=== PATIENT | male | born 1960 | race Caucasian/White ===

== ENCOUNTER 2016-07-24 07:52 | Inpatient (IN) | payer MEDICARE ==
[2016-07-24] MEDS ORDERED: NORMAL SALINE 1000 ML 1,000 ML IV ONE ×3 (08:56→12:35)
[2016-07-24] MEDS ORDERED: ONDANSETRON HCL INJ/PF 4 MG/2 ML SDV IV ONE (09:00)
[2016-07-24] MEDS ORDERED: MORPHINE SULFATE 10 MG/ML INJ IV ONE (09:00)
--- NOTE | 2016-07-24 09:00 | ER Document Report ---
ED GI/ - General Chief Complaint: Abdominal Pain Stated Complaint: ABDOMINAL PAIN Time seen by provider: 08:58 Mode of Arrival: Medic Information source: Patient Notes: 56 yo male c/o epigastric abd. pain this am at 4 am. Has been drinking ETOH- states he was drunk this am. Called EMS. Hx pancreatitis and he thinks he has it again. Previous surgery for esophogeal stricture-severe with pancreatitis in [place] last hear. Vomiting, no diarrhea. Constipated. No fever. TRAVEL OUTSIDE OF THE [place] IN LAST 30 DAYS: No - Related Data Allergies/Adverse Reactions: No Known Allergies Allergy (Verified 07/24/16 07:59) Home Medications: Current Home Medications Metoprolol Tartrate [Lopressor 25 mg Tablet] 25 mg PO Q12 07/24/16 [History] Sertraline HCl [Zoloft] 200 mg PO DAILY 07/24/16 [History] Past Medical History - General Information source: Patient - Social History Smoking Status: Current Every Day Smoker Frequency of alcohol use: Heavy Drug Abuse: None Lives with: Spouse/Significant other Family History: Reviewed & Not Pertinent Patient has suicidal ideation: No Patient has homicidal ideation: No - Past Medical History Cardiac Medical History: Reports: Hx Hypertension Renal/ Medical History: Denies: Hx Peritoneal Dialysis GI Medical History: Reports: Hx Gastroesophageal Reflux Disease, Hx Hiatal Hernia, Other - pancreatitis Psychiatric Medical History: Reports: Hx Depression Past Surgical History: Reports: Hx Abdominal Surgery, Other - Esophageal surgery - Immunizations Hx Diphtheria, Pertussis, Tetanus Vaccination: Yes Hx Pneumococcal Vaccination: 10/16/15 Review of Systems - Review of Systems Constitutional: No symptoms reported EENT: No symptoms reported Cardiovascular: No symptoms reported Respiratory: No symptoms reported Gastrointestinal: See HPI Genitourinary: No symptoms reported Male Genitourinary: No symptoms reported Musculoskeletal: No symptoms reported Skin: No symptoms reported Hematologic/Lymphatic: No symptoms reported Neurological/Psychological: No symptoms reported Physical Exam - Vital signs Vitals: Temp Pulse Resp BP Pulse Ox 97.3 F 105 H 20 127/91 H 100 07/24/16 07:59 07/24/16 07:59 07/24/16 07:59 07/24/16 07:59 07/24/16 07:59 Interpretation: Hypertensive, Tachycardic - General General appearance: Appears well, Alert - HEENT Head: Normocephalic, Atraumatic Eyes: Normal Conjunctiva: Normal Pupils: PERRL Pharynx: Normal Neck: Supple - Respiratory Respiratory status: No respiratory distress Chest status: Nontender Breath sounds: Normal Chest palpation: Normal - Cardiovascular Rhythm: Regular Heart sounds: Normal auscultation Murmur: No - Abdominal Inspection: Normal Distension: No distension Bowel sounds: Normal Tenderness: Tender - epigastrum, scar noted Organomegaly: No organomegaly - Back Back: Normal, Nontender. No: CVA tenderness - Extremities General upper extremity: Normal inspection, Nontender, Normal color, Normal ROM , Normal temperature General lower extremity: Normal inspection, Nontender, Normal color, Normal ROM , Normal temperature, Normal weight bearing. No: Uziel's sign - Neurological Neuro grossly intact: Yes Cognition: Normal Orientation: AAOx4 [place] Coma Scale Eye Opening: Spontaneous [place] Coma Scale Verbal: Oriented [place] Coma Scale Motor: Obeys Commands [place] Coma Scale Total: 15 Speech: Normal Motor strength normal: LUE, RUE, LLE, RLE Sensory: Normal - Psychological Associated symptoms: Normal affect, Normal mood - Skin Skin Temperature: Warm Skin Moisture: Dry Skin Color: Normal Skin irregularity: negative: Rash Course - Re-evaluation Re-evalutation: 07/24/16 11:[address] dominguez for admission. 07/24/16 11:30 dr fong will admit to telemetry unit. get ekg. 0 - Vital Signs Vital signs: Temp Pulse Resp BP Pulse Ox 98.1 F 105 H 15 167/94 H 97 07/24/16 19:51 07/24/16 19:51 07/24/16 19:51 07/24/16 19:51 07/24/16 19:51 - Laboratory Result Diagrams: 07/24/16 09:48 07/24/16 09:48 Laboratory results interpreted by me: 07/24/16 07/24/16 07/24/16 09:48 09:48 10:38 WBC 11.0 H MCH 26.8 L RDW 20.4 H Absolute Neutrophils 8.3 H Sodium 150.5 H Anion Gap 20 H Calcium 12.5 H* Alkaline Phosphatase 203 H Lipase 1634.9 H Urine Protein 30 H Urine Ketones TRACE H Ur Leukocyte Esterase TRACE H Serum Alcohol 312 H* Discharge - Discharge Clinical Impression: Hypernatremia, Hypercalcemia, Alcohol abuse Pancreatitis Qualifiers: Chronicity: acute Pancreatitis type: alcohol induced Acute pancreatitis complication: unspecified Qualified Code(s): K85.20 - Alcohol induced acute pancreatitis without necrosis or infection Condition: Stable Disposition: ADMITTED INPATIENT Admitting Provider: Hospitalist Unit Admitted: Telemetry
[2016-07-24 09:59] LABS: ABSOLUTE BASOPHILS # (AUTO) 0.1 10^3/uL (0.0-0.2); ABSOLUTE LYMPHOCYTES (AUTO) 1.9 10^3/uL (0.5-4.7); ABSOLUTE MONOCYTES (AUTO) 0.6 10^3/uL (0.1-1.4); ABSOLUTE NEUT (AUTO) 8.3 10^3/uL (1.7-8.2); BASOPHILS % (AUTO) 0.8 % (0-2); EOSINOPHILS % (AUTO) 0.4 % (0-6); HEMATOCRIT 41.6 % (37.9-51.0); HEMOGLOBIN 13.7 g/dL (13.5-17.0); HGB HCT DIFFERENCE -0.5; LYMPHOCYTES % (AUTO) 17.4 % (13-45); MEAN CORPUSCULAR HEMOGLOBIN 26.8 pg (27.0-33.4); MEAN CORPUSCULAR VOLUME 81 fl (80-97); MONOCYTES % (AUTO) 5.6 % (3-13); RED BLOOD COUNT 5.12 10^6/uL (4.35-5.55); RED CELL DISTRIBUTION WIDTH 20.4 % (11.5-14.0); SEGMENTED NEUTROPHILS % (AUTO) 75.8 % (42-78)
[2016-07-24 10:18] LABS: ALANINE AMINOTRANSFERASE 22 U/L (21-72); ALBUMIN 3.5 g/dL (3.5-5.0); ALKALINE PHOSPHATASE 203 U/L (38-126); ASPARTATE AMINO TRANSFERASE 55 U/L (17-59); BILIRUBIN,TOTAL 0.4 mg/dL (0.2-1.3); BLOOD UREA NITROGEN 10 mg/dL (7-20); CARBON DIOXIDE 30 mmol/L (22-30); CHLORIDE 101 mmol/L (98-107); CREATININE RESULT 0.92 mg/dL (0.52-1.25); GLUCOSE 90 mg/dL (75-110); LIPASE 1634.9 U/L (23-300); POTASSIUM 4.1 mmol/L (3.6-5.0); SODIUM 150.5 mmol/L (137-145); TOTAL PROTEIN 8.1 g/dL (6.3-8.2)
[2016-07-24 10:34] LABS: ALCOHOL 312 mg/dL (NONE DETECTED); ANION GAP 20 (5-19); CALCIUM 12.5 mg/dL (8.4-10.2)
[2016-07-24 11:10] LABS: APPEARANCE,URINE SLIGHTLY-CLOUDY; BILIRUBIN,URINE NEGATIVE (NEGATIVE); GLUCOSE, URINE NEGATIVE (NEGATIVE); KETONES,URINE TRACE mg/dL (NEGATIVE); LEUKOCYTE ESTERASE,URINE TRACE (NEGATIVE); NITRITE,URINE NEGATIVE (NEGATIVE); PROTEIN,URINE 30 mg/dL (NEGATIVE); URINE SPECIFIC GRAVITY 1.017; UROBILINOGEN,URINE NEGATIVE mg/dL (<2.0)
[2016-07-24 11:29] LABS: URINE BARBITURATES SCREEN NEGATIVE; URINE METHADONE SCREEN NEGATIVE; URINE OPIATES LOW UNCONFIRMED POSITIVE; URINE PHENCYCLIDINE SCREEN NEGATIVE
[2016-07-24] MEDS ORDERED: LORAZEPAM INJ 2 MG/1 ML VIAL IV PRN (12:18)
[2016-07-24] MEDS ORDERED: ONDANSETRON HCL INJ/PF 4 MG/2 ML SDV IV PRN ×2 (12:29)
--- NOTE | 2016-07-24 12:43 | EKG REPORT ---
SEVERITY:- BORDERLINE ECG - SINUS TACHYCARDIA RIGHT AXIS DEVIATION LOW VOLTAGE IN FRONTAL LEADS BORDERLINE ST DEPRESSION, ANTEROLATERAL LEADS : Confirmed by: Anant Ventura 24-Jul-2016 12:42:19
--- NOTE | 2016-07-24 13:00 | PDOC H&P ---
History of Present Illness Admission Date/PCP: 07/24/16 11:44 MARTHA GARRETT MD Patient complains of: abdominal pain History of Present Illness: HALLE ROSARIO is a 56 year old male c/o epigastric abd. pain this am at 4 am. Has been drinking ETOH- states he was drunk this am. Called EMS. Hx pancreatitis and he thinks he has it again. Previous surgery for esophogeal stricture-severe with pancreatitis in [place] last hear. Vomiting, no diarrhea. Constipated. No fever. In the ER patient patient was found to be in alcohol withdrawal , tremulous He was extremely dehydrated with a sodium of 150 , calcium of 12.5 ; lipase 1634 07/24/16 09:48 Sodium 150.5 H Potassium 4.1 Chloride 101 Carbon Dioxide 30 Calcium 12.5 H* Lipase 1634.9 H Patient was discharged on 06/24/2016 with a diagnosis of acute pancreatitis CT abdomen and pelvis done during the hospital stay was suggestive of pancreatic pseudocyst " cystic mass post mediastinum communicating with other mass epigastrium " Patient was admitted to [facility] [place] with alcohol withdrawal protocol Repeat CT abdomen and pelvis was scheduled Past Medical History Cardiac Medical History: Reports: Hypertension GI Medical History: Reports: Gastroesophageal Reflux Disease, Hiatal Hernia Psychiatric Medical History: Reports: Depression Past Surgical History Past Surgical History: Reports: Tonsillectomy, Other - Esophageal resection [facility] 2014 Social History Information Source: Patient Smoking Status: Current Every Day Smoker - 1-2 packs daily Frequency of Alcohol Use: Heavy - 1 pint vodka a day Hx Recreational Drug Use: No Drugs: None Hx Prescription Drug Abuse: No Family History Parental Family History Reviewed: Yes - chronic alcoholism / smoking Children Family History Reviewed: Yes - no children Sibling(s) Family History Reviewed.: Yes - 1 brother chronic alcoholism Medication/Allergy Home Medications: Metoprolol Tartrate [Lopressor 25 mg Tablet] 25 mg PO Q12 07/24/16 Sertraline HCl [Zoloft] 200 mg PO DAILY 07/24/16 Allergies/Adverse Reactions: No Known Allergies Allergy (Verified 07/24/16 07:59) Review of Systems Constitutional: ABSENT: chills, fever(s), headache(s), weight gain, weight loss Eyes: ABSENT: visual disturbances Ears: ABSENT: hearing changes Cardiovascular: ABSENT: chest pain, dyspnea on exertion, edema, orthropnea, palpitations Respiratory: ABSENT: cough, hemoptysis Gastrointestinal: PRESENT: as per HPI, abdominal pain, constipation, nausea. ABSENT: hematemesis, hematochezia, melena, vomiting Genitourinary: ABSENT: dysuria, hematuria Musculoskeletal: ABSENT: joint swelling Integumentary: ABSENT: rash, wounds Neurological: PRESENT: tremor(s). ABSENT: abnormal gait, abnormal speech, confusion, dizziness, focal weakness, syncope Psychiatric: ABSENT: anxiety, depression, homidical ideation, suicidal ideation Endocrine: ABSENT: cold intolerance, heat intolerance, polydipsia, polyuria Hematologic/Lymphatic: ABSENT: easy bleeding, easy bruising Physical Exam Vital Signs: Temp Pulse Resp BP Pulse Ox 98.3 F 123 H 20 153/116 H 100 07/24/16 12:14 07/24/16 12:14 07/24/16 07:59 07/24/16 12:14 07/24/16 07:59 General appearance: PRESENT: cooperative, mild distress, thin Head exam: PRESENT: atraumatic, normocephalic Eye exam: PRESENT: conjunctiva pink, EOMI, PERRLA. ABSENT: scleral icterus Neck exam: ABSENT: carotid bruit, JVD, lymphadenopathy, thyromegaly Respiratory exam: PRESENT: clear to auscultation nishant. ABSENT: rales, rhonchi, wheezes Cardiovascular exam: PRESENT: RRR. ABSENT: diastolic murmur, rubs, systolic murmur Pulses: PRESENT: normal dorsalis pedis pul GI/Abdominal exam: PRESENT: other - vertical surgical scar abdomen extreme tenderness epigastrium with guarding no rebound Extremities exam: PRESENT: full ROM. ABSENT: calf tenderness, clubbing, pedal edema Musculoskeletal exam: PRESENT: ambulatory, full ROM Neurological exam: PRESENT: alert, awake, oriented to person, oriented to place , oriented to time, oriented to situation, CN II-XII grossly intact, other - tremors. ABSENT: motor sensory deficit Skin exam: PRESENT: dry, intact, warm. ABSENT: cyanosis, rash Assessment & Plan - Diagnosis (1) Alcohol withdrawal Qualifiers: Complication of substance-induced condition: with unspecified complication Qualified Code(s): F10.239 - Alcohol dependence with withdrawal, unspecified Is this a current diagnosis for this admission?: YesPlan: initiate protocole ativan , banana bag cardiac monitoring (2) Pancreatic pseudocyst Is this a current diagnosis for this admission?: YesPlan: as per previous CT abdomen and pelvis repeat CT in am and reevaluate records to be obtained from [place] (3) Alcohol abuse Is this a current diagnosis for this admission?: Yes (5) Hypercalcemia Is this a current diagnosis for this admission?: YesPlan: likely secondary to dehydration hydrate repeat in am investigate further if persistent (6) Pancreatitis Qualifiers: Chronicity: acute Pancreatitis type: alcohol induced Acute pancreatitis complication: unspecified Qualified Code(s): K85.20 - Alcohol induced acute pancreatitis without necrosis or infection Is this a current diagnosis for this admission?: YesPlan: NPO IV fluids CT abdomen and pelvis pending (7) Chronic alcoholism Is this a current diagnosis for this admission?: Yes (8) DNR (do not resuscitate) Is this a current diagnosis for this admission?: Yes - Time Time Spent: 50 to 70 Minutes
[2016-07-24] MEDS ORDERED: PANTOPRAZOLE SODIUM 40 MG VIAL IV ONE ×2 (13:15→16:45)
[2016-07-24] MEDS: HYDROMORPHONE HCL INJ/PF 2 MG/ML AMPULE IV PRN (17:07)
[2016-07-24] MEDS: LORAZEPAM 1 MG TABLET PO SCH ×3 (17:09→21:27)
[2016-07-24] MEDS: NORMAL SALINE 1000 ML 1,000 ML with POTASSIUM CHLORIDE 20 MEQ, MAGNESIUM SULFATE 8 MEQ,... IV PRN ×5 (17:11)
[2016-07-24] MEDS ORDERED: INFLUENZA ADLT QUAD (36MOS+) 2016-17 VAC 0.5 ML SYR IM PRN (19:06)
[2016-07-24] MEDS: PANTOPRAZOLE SODIUM 40 MG VIAL IV SCH (21:27)
[2016-07-25] MEDS: LORAZEPAM 1 MG TABLET PO SCH ×6 (01:07→21:13)
[2016-07-25] MEDS: NORMAL SALINE 1000 ML 1,000 ML with POTASSIUM CHLORIDE 20 MEQ, MAGNESIUM SULFATE 8 MEQ,... IV PRN ×10 (03:45→17:21)
[2016-07-25 07:40] LABS: ABSOLUTE LYMPHOCYTES (AUTO) 0.7 10^3/uL (0.5-4.7); ABSOLUTE MONOCYTES (AUTO) 0.5 10^3/uL (0.1-1.4); ABSOLUTE NEUT (AUTO) 7.3 10^3/uL (1.7-8.2); BASOPHILS % (AUTO) 0.2 % (0-2); EOSINOPHILS % (AUTO) 0.2 % (0-6); HEMATOCRIT 35.9 % (37.9-51.0); HGB HCT DIFFERENCE 0.1; LYMPHOCYTES % (AUTO) 7.7 % (13-45); MEAN CORPUSCULAR HEMOGLOBIN 27.5 pg (27.0-33.4); MEAN CORPUSCULAR HGB CONC 33.4 g/dL (32.0-36.0); MEAN CORPUSCULAR VOLUME 82 fl (80-97); MONOCYTES % (AUTO) 5.9 % (3-13); RED BLOOD COUNT 4.37 10^6/uL (4.35-5.55); RED CELL DISTRIBUTION WIDTH 20.3 % (11.5-14.0); WHITE BLOOD COUNT 8.5 10^3/uL (4.0-10.5)
[2016-07-25 08:00] LABS: ANION GAP 11 (5-19)
[2016-07-25 08:14] LABS: ALANINE AMINOTRANSFERASE 32 U/L (21-72); ALBUMIN 3.4 g/dL (3.5-5.0); ALKALINE PHOSPHATASE 198 U/L (38-126); ASPARTATE AMINO TRANSFERASE 50 U/L (17-59); BILIRUBIN,TOTAL 0.7 mg/dL (0.2-1.3); BLOOD UREA NITROGEN 8 mg/dL (7-20); CARBON DIOXIDE 37 mmol/L (22-30); CHLORIDE 92 mmol/L (98-107); CHOLESTEROL 158.67 mg/dL (0-200); CREATININE RESULT 0.61 mg/dL (0.52-1.25); DIRECT LDL 45 mg/dL (<100); Direct HDL 89 mg/dL (>40); GLUCOSE 76 mg/dL (75-110); SODIUM 140.1 mmol/L (137-145); TOTAL PROTEIN 7.7 g/dL (6.3-8.2); TRIGLYCERIDES 45 mg/dL (<150)
[2016-07-25 08:15] LABS: LIPASE 2092.7 U/L (23-300)
[2016-07-25] MEDS: PANTOPRAZOLE SODIUM 40 MG VIAL IV SCH ×2 (09:40→21:13)
[2016-07-25] MEDS: MAGNESIUM SULFATE/D5W 1 GM/100 ML RTUPB IV SCH ×2 (11:57→13:52)
[2016-07-25] MEDS: POTASSI CL 20 MEQ/50 ML RIDER 20 MEQ/50 ML RTUPB IV SCH ×2 (11:59→15:42)
--- NOTE | 2016-07-25 13:59 | PDOC PROGRESS REPORT ---
Subjective Progress Note for:: 07/25/16 Subjective:: Patient is still complaining of abdominal pain no nausea or vomiting somewhat tremulous Mag and K low and being replaced Physical Exam Vital Signs: Temp Pulse Resp BP Pulse Ox 97.4 F 74 18 153/96 H 98 07/25/16 12:03 07/25/16 12:03 07/25/16 12:03 07/25/16 12:03 07/25/16 12:03 Intake & Output 07/24/16 07/25/16 07/26/16 00:59 00:59 00:59 Intake Total 671 3219 Output Total 250 3350 Balance 421 -131 Weight 67.2 kg 67.2 kg General appearance: PRESENT: mild distress Head exam: PRESENT: atraumatic, normocephalic Eye exam: PRESENT: conjunctiva pink, EOMI, PERRLA. ABSENT: scleral icterus Neck exam: ABSENT: carotid bruit, JVD, lymphadenopathy, thyromegaly Respiratory exam: PRESENT: clear to auscultation nishant. ABSENT: rales, rhonchi, wheezes Cardiovascular exam: PRESENT: RRR. ABSENT: diastolic murmur, rubs, systolic murmur Pulses: PRESENT: normal dorsalis pedis pul GI/Abdominal exam: PRESENT: normal bowel sounds, soft, tenderness - epigastrium with mild guarding. ABSENT: distended, guarding, mass, organolmegaly, rebound Rectal exam: PRESENT: deferred Neurological exam: PRESENT: alert, awake, oriented to person, oriented to place , oriented to time, oriented to situation, CN II-XII grossly intact, other - tremors upper extremities. ABSENT: motor sensory deficit Results Laboratory Results: 07/25/16 07:15 07/25/16 07:15 07/25/16 07/25/16 07/25/16 07:15 07:15 07:15 WBC 8.5 RBC 4.37 Hgb 12.0 L Hct 35.9 L MCV 82 MCH 27.5 MCHC 33.4 RDW 20.3 H Plt Count 188 Seg Neutrophils % 86.0 H Lymphocytes % 7.7 L Monocytes % 5.9 Eosinophils % 0.2 Basophils % 0.2 Absolute Neutrophils 7.3 Absolute Lymphocytes 0.7 Absolute Monocytes 0.5 Absolute Eosinophils 0.0 Absolute Basophils 0.0 Sodium 140.1 Potassium 3.0 L* D Chloride 92 L Carbon Dioxide 37 H Anion Gap 11 BUN 8 Creatinine 0.61 Est GFR ( Amer) > 60 Est GFR (Non-Af Amer) > 60 Glucose 76 Calcium 10.0 Magnesium 1.0 L* Total Bilirubin 0.7 AST 50 ALT 32 Alkaline Phosphatase 198 H Ammonia 25.2 Total Protein 7.7 Albumin 3.4 L Triglycerides 45 Cholesterol 158.67 LDL Cholesterol Direct 45 VLDL Cholesterol 9.0 L HDL Cholesterol 89 Lipase 2092.7 H TSH 07/25/16 07:15 WBC RBC Hgb Hct MCV MCH MCHC RDW Plt Count Seg Neutrophils % Lymphocytes % Monocytes % Eosinophils % Basophils % Absolute Neutrophils Absolute Lymphocytes Absolute Monocytes Absolute Eosinophils Absolute Basophils Sodium Potassium Chloride Carbon Dioxide Anion Gap BUN Creatinine Est GFR ( Amer) Est GFR (Non-Af Amer) Glucose Calcium Magnesium Total Bilirubin AST ALT Alkaline Phosphatase Ammonia Total Protein Albumin Triglycerides Cholesterol LDL Cholesterol Direct VLDL Cholesterol HDL Cholesterol Lipase TSH 0.94 Impressions: Chest X-Ray 07/24/16 12:17 IMPRESSION: COPD. NO ACUTE RADIOGRAPHIC FINDING IN THE CHEST. Abdomen/Pelvis CT 07/25/16 06:00 IMPRESSION: No CT evidence of acute pancreatitis on the current scan Post gastric pull-through, anterior mediastinum Stable posterior mediastinal fluid collection in the expected location of the esophagus, 14 x 6 x 5 cm in size. Assessment & Plan - Diagnosis (1) Alcohol withdrawal Qualifiers: Complication of substance-induced condition: with unspecified complication Qualified Code(s): F10.239 - Alcohol dependence with withdrawal, unspecified Is this a current diagnosis for this admission?: YesPlan: continue Ativan protocole (2) Pancreatic pseudocyst Is this a current diagnosis for this admission?: NoPlan: unlikely cystic mass in chest likely distal esophageal remnant (3) Alcohol abuse Is this a current diagnosis for this admission?: Yes (4) Hypernatremia Is this a current diagnosis for this admission?: YesPlan: resolved (5) Hypercalcemia Is this a current diagnosis for this admission?: YesPlan: improved with hydration (6) Pancreatitis Qualifiers: Chronicity: acute Pancreatitis type: alcohol induced Acute pancreatitis complication: unspecified Qualified Code(s): K85.20 - Alcohol induced acute pancreatitis without necrosis or infection Is this a current diagnosis for this admission?: YesPlan: lipase still high continue IV fluids, ice chips (7) Chronic alcoholism Is this a current diagnosis for this admission?: Yes (8) DNR (do not resuscitate) Is this a current diagnosis for this admission?: Yes (9) Renal mass, right Is this a current diagnosis for this admission?: YesPlan: to be discussed with patient refer patient to urology at discharge - Time Time Spent with patient: 25-34 minutes
[2016-07-25 19:09] LABS: ANION GAP 11 (5-19); BLOOD UREA NITROGEN 6 mg/dL (7-20); CALCIUM 9.2 mg/dL (8.4-10.2); CARBON DIOXIDE 36 mmol/L (22-30); CHLORIDE 93 mmol/L (98-107); CREATININE RESULT 0.55 mg/dL (0.52-1.25); GLUCOSE 62 mg/dL (75-110); MAGNESIUM 1.8 mg/dL (1.6-2.3); POTASSIUM 3.4 mmol/L (3.6-5.0); SODIUM 139.9 mmol/L (137-145)
[2016-07-25] MEDS: METOPROLOL TARTRATE 25 MG TABLET PO SCH (21:12)
[2016-07-26] MEDS: HYDROMORPHONE HCL INJ/PF 2 MG/ML AMPULE IV PRN (01:01)
[2016-07-26] MEDS: LORAZEPAM 1 MG TABLET PO SCH ×6 (01:02→22:09)
[2016-07-26 07:19] LABS: ANION GAP 10 (5-19); BLOOD UREA NITROGEN 8 mg/dL (7-20); CALCIUM 8.5 mg/dL (8.4-10.2); CARBON DIOXIDE 31 mmol/L (22-30); CHLORIDE 99 mmol/L (98-107); CREATININE RESULT 0.64 mg/dL (0.52-1.25); GLUCOSE 52 mg/dL (75-110); MAGNESIUM 1.8 mg/dL (1.6-2.3); SODIUM 140.2 mmol/L (137-145)
[2016-07-26 07:22] LABS: POTASSIUM 3.3 mmol/L (3.6-5.0)
[2016-07-26] MEDS: METOPROLOL TARTRATE 25 MG TABLET PO SCH (09:26)
[2016-07-26] MEDS: PANTOPRAZOLE SODIUM 40 MG VIAL IV SCH (09:27)
[2016-07-26] MEDS ORDERED: NORMAL SALINE 1000 ML 1,000 ML IV PRN (10:03)
[2016-07-26] MEDS ORDERED: POTASSIUM CHLORIDE 10 MEQ TABLET.SA PO ONE (10:30)
[2016-07-26] MEDS ORDERED: THIAMINE HCL 100 MG TABLET PO ONE (11:00)
--- NOTE | 2016-07-26 15:52 | PDOC PROGRESS REPORT ---
Subjective Progress Note for:: 07/26/16 Subjective:: doing well abdominal pain decreased , minimal tremors BP has been elevated Physical Exam Vital Signs: Temp Pulse Resp BP Pulse Ox 98.0 F 101 H 16 172/94 H 99 07/26/16 12:13 07/26/16 14:00 07/26/16 12:13 07/26/16 12:13 07/26/16 12:13 Intake & Output 07/25/16 07/26/16 07/27/16 00:59 00:59 00:59 Intake Total 671 4396 1098 Output Total 250 3675 500 Balance 421 721 598 Weight 67.2 kg 67.2 kg 63.9 kg General appearance: PRESENT: no acute distress, thin Head exam: PRESENT: atraumatic, normocephalic Eye exam: PRESENT: conjunctiva pink, EOMI, PERRLA. ABSENT: scleral icterus Ear exam: PRESENT: normal external ear exam Mouth exam: PRESENT: moist, tongue midline Neck exam: ABSENT: carotid bruit, JVD, lymphadenopathy, thyromegaly Respiratory exam: PRESENT: clear to auscultation nishant. ABSENT: rales, rhonchi, wheezes Cardiovascular exam: PRESENT: RRR. ABSENT: diastolic murmur, rubs, systolic murmur Pulses: PRESENT: normal dorsalis pedis pul Vascular exam: PRESENT: normal capillary refill GI/Abdominal exam: PRESENT: normal bowel sounds, soft, tenderness - epigastrium. ABSENT: distended, guarding, mass, organolmegaly, rebound Rectal exam: PRESENT: deferred Extremities exam: PRESENT: full ROM. ABSENT: calf tenderness, clubbing, pedal edema Neurological exam: PRESENT: alert, awake, oriented to person, oriented to place , oriented to time, oriented to situation, CN II-XII grossly intact. ABSENT: motor sensory deficit Psychiatric exam: PRESENT: appropriate affect, normal mood. ABSENT: homicidal ideation, suicidal ideation Skin exam: PRESENT: dry, intact, warm. ABSENT: cyanosis, rash Results Laboratory Results: 07/25/16 07:15 07/26/16 06:16 07/25/16 07/26/16 18:35 06:16 Sodium 139.9 140.2 Potassium 3.4 L 3.3 L Chloride 93 L 99 Carbon Dioxide 36 H 31 H Anion Gap 11 10 BUN 6 L 8 Creatinine 0.55 0.64 Est GFR ( Amer) > 60 > 60 Est GFR (Non-Af Amer) > 60 > 60 Glucose 62 L 52 L Calcium 9.2 8.5 Magnesium 1.8 1.8 Impressions: Chest X-Ray 07/24/16 12:17 IMPRESSION: COPD. NO ACUTE RADIOGRAPHIC FINDING IN THE CHEST. Abdomen/Pelvis CT 07/25/16 06:00 IMPRESSION: No CT evidence of acute pancreatitis on the current scan Post gastric pull-through, anterior mediastinum Stable posterior mediastinal fluid collection in the expected location of the esophagus, 14 x 6 x 5 cm in size. Assessment & Plan - Diagnosis (1) Alcohol withdrawal Qualifiers: Complication of substance-induced condition: with unspecified complication Qualified Code(s): F10.239 - Alcohol dependence with withdrawal, unspecified Is this a current diagnosis for this admission?: Yes (2) Pancreatic pseudocyst Is this a current diagnosis for this admission?: No (3) Alcohol abuse Is this a current diagnosis for this admission?: Yes (4) Hypernatremia Is this a current diagnosis for this admission?: Yes (5) Hypercalcemia Is this a current diagnosis for this admission?: Yes (6) Pancreatitis Qualifiers: Chronicity: acute Pancreatitis type: alcohol induced Acute pancreatitis complication: unspecified Qualified Code(s): K85.20 - Alcohol induced acute pancreatitis without necrosis or infection Is this a current diagnosis for this admission?: Yes (7) Chronic alcoholism Is this a current diagnosis for this admission?: Yes (8) DNR (do not resuscitate) Is this a current diagnosis for this admission?: Yes (9) Renal mass, right Is this a current diagnosis for this admission?: Yes - Time Time Spent with patient: electrolyte imbalance improved pancreatitis improving will increase diet to clear liquids ; decrease ativan , transfer to medical unit Patient may be discharged in am if stable Time Spent with patient: 25-34 minutes
[2016-07-26] MEDS ORDERED: METOPROLOL TARTRATE 25 MG TABLET PO SCH (16:00)
[2016-07-26] MEDS: FAMOTIDINE 20 MG TABLET PO SCH (22:08)
[2016-07-26] MEDS: METOPROLOL TARTRATE 50 MG TABLET PO SCH (22:09)
[2016-07-27] MEDS: LORAZEPAM 1 MG TABLET PO SCH ×6 (01:16→21:44)
[2016-07-27] MEDS ORDERED: LORAZEPAM INJ 2 MG/1 ML VIAL ONE ×2 (02:37→04:07)
[2016-07-27] MEDS ORDERED: HALOPERIDOL LACTATE INJ 5 MG/1 ML VIAL ONE (02:37)
[2016-07-27] MEDS ORDERED: LORAZEPAM INJ 2 MG/1 ML VIAL IV ONE ×2 (02:45→04:15)
[2016-07-27] MEDS ORDERED: HALOPERIDOL LACTATE INJ 5 MG/1 ML VIAL IV ONE (02:45)
[2016-07-27] MEDS ORDERED: OLANZAPINE INJ/PF 10 MG SDV IM ONE ×3 (04:45→05:00)
[2016-07-27 06:11] LABS: ABSOLUTE BASOPHILS # (AUTO) 0.1 10^3/uL (0.0-0.2); ABSOLUTE EOSINOPHILS # (AUTO) 0.2 10^3/uL (0.0-0.6); ABSOLUTE LYMPHOCYTES (AUTO) 1.1 10^3/uL (0.5-4.7); ABSOLUTE MONOCYTES (AUTO) 0.5 10^3/uL (0.1-1.4); ABSOLUTE NEUT (AUTO) 6.1 10^3/uL (1.7-8.2); BASOPHILS % (AUTO) 1.1 % (0-2); EOSINOPHILS % (AUTO) 2.1 % (0-6); HEMATOCRIT 33.7 % (37.9-51.0); HEMOGLOBIN 11.1 g/dL (13.5-17.0); HGB HCT DIFFERENCE -0.4; MEAN CORPUSCULAR HGB CONC 32.9 g/dL (32.0-36.0); MEAN CORPUSCULAR VOLUME 82 fl (80-97); MONOCYTES % (AUTO) 6.1 % (3-13); RED BLOOD COUNT 4.11 10^6/uL (4.35-5.55); SEGMENTED NEUTROPHILS % (AUTO) 76.7 % (42-78)
[2016-07-27 06:30] LABS: ALANINE AMINOTRANSFERASE 26 U/L (21-72); ALBUMIN 3.1 g/dL (3.5-5.0); ALKALINE PHOSPHATASE 158 U/L (38-126); ANION GAP 11 (5-19); ASPARTATE AMINO TRANSFERASE 37 U/L (17-59); BILIRUBIN,TOTAL 0.6 mg/dL (0.2-1.3); BLOOD UREA NITROGEN 7 mg/dL (7-20); CALCIUM 8.2 mg/dL (8.4-10.2); CARBON DIOXIDE 27 mmol/L (22-30); CHLORIDE 102 mmol/L (98-107); CREATININE RESULT 0.59 mg/dL (0.52-1.25); GLUCOSE 81 mg/dL (75-110); LIPASE 613.1 U/L (23-300); POTASSIUM 3.2 mmol/L (3.6-5.0); SODIUM 139.6 mmol/L (137-145); TOTAL PROTEIN 6.5 g/dL (6.3-8.2)
[2016-07-27] MEDS: FAMOTIDINE 20 MG TABLET PO SCH ×2 (09:04→21:45)
[2016-07-27] MEDS: METOPROLOL TARTRATE 50 MG TABLET PO SCH ×2 (09:05→21:44)
[2016-07-27] MEDS: THIAMINE HCL 100 MG TABLET PO SCH (09:05)
--- NOTE | 2016-07-27 17:51 | PDOC PROGRESS REPORT ---
Subjective Progress Note for:: 07/27/16 Subjective:: Patient's pancreatitis has improved as the lipase is on in a downward trend But patient's mentation is a lot worse and is clearly in alcohol withdrawal We increased the Ativan Patient is on soft restraints Physical Exam Vital Signs: Temp Pulse Resp BP Pulse Ox 97.5 F 77 16 149/99 H 100 07/27/16 16:07 07/27/16 16:07 07/27/16 16:07 07/27/16 16:07 07/27/16 16:07 Intake & Output 07/26/16 07/27/16 07/28/16 00:59 00:59 00:59 Intake Total 4396 1843 3195 Output Total 3675 702 100 Balance 721 1141 3095 Weight 67.2 kg 63.9 kg 63.7 kg General appearance: PRESENT: mild distress, thin Head exam: PRESENT: atraumatic, normocephalic Eye exam: PRESENT: conjunctiva pink, EOMI, PERRLA. ABSENT: scleral icterus Neck exam: ABSENT: carotid bruit, JVD, lymphadenopathy, thyromegaly Respiratory exam: PRESENT: clear to auscultation nishant. ABSENT: rales, rhonchi, wheezes Cardiovascular exam: PRESENT: RRR. ABSENT: diastolic murmur, rubs, systolic murmur Pulses: PRESENT: normal dorsalis pedis pul GI/Abdominal exam: PRESENT: tenderness - In the epigastrium remains Extremities exam: PRESENT: full ROM. ABSENT: calf tenderness, clubbing, pedal edema Neurological exam: PRESENT: alert, awake, CN II-XII grossly intact, other - Confused. ABSENT: motor sensory deficit Skin exam: PRESENT: dry, intact, warm. ABSENT: cyanosis, rash Results Laboratory Results: 07/27/16 05:51 07/27/16 05:51 07/27/16 07/27/16 05:51 05:51 WBC 8.0 RBC 4.11 L Hgb 11.1 L Hct 33.7 L MCV 82 MCH 27.0 MCHC 32.9 RDW 20.0 H Plt Count 157 Seg Neutrophils % 76.7 Lymphocytes % 14.0 Monocytes % 6.1 Eosinophils % 2.1 Basophils % 1.1 Absolute Neutrophils 6.1 Absolute Lymphocytes 1.1 Absolute Monocytes 0.5 Absolute Eosinophils 0.2 Absolute Basophils 0.1 Sodium 139.6 Potassium 3.2 L Chloride 102 Carbon Dioxide 27 Anion Gap 11 BUN 7 Creatinine 0.59 Est GFR ( Amer) > 60 Est GFR (Non-Af Amer) > 60 Glucose 81 Calcium 8.2 L Total Bilirubin 0.6 AST 37 ALT 26 Alkaline Phosphatase 158 H Total Protein 6.5 Albumin 3.1 L Lipase 613.1 H Impressions: Chest X-Ray 07/24/16 12:17 IMPRESSION: COPD. NO ACUTE RADIOGRAPHIC FINDING IN THE CHEST. Abdomen/Pelvis CT 07/25/16 06:00 IMPRESSION: No CT evidence of acute pancreatitis on the current scan Post gastric pull-through, anterior mediastinum Stable posterior mediastinal fluid collection in the expected location of the esophagus, 14 x 6 x 5 cm in size. Assessment & Plan - Diagnosis (1) Pancreatic pseudocyst Is this a current diagnosis for this admission?: NoPlan: Was ruled out by the recent CAT scan (2) Alcohol abuse Is this a current diagnosis for this admission?: Yes (3) Hypernatremia Is this a current diagnosis for this admission?: YesPlan: Resolved (4) Hypercalcemia Is this a current diagnosis for this admission?: YesPlan: Resolved (5) Pancreatitis Qualifiers: Chronicity: acute Pancreatitis type: alcohol induced Acute pancreatitis complication: unspecified Qualified Code(s): K85.20 - Alcohol induced acute pancreatitis without necrosis or infection Is this a current diagnosis for this admission?: Yes (6) Chronic alcoholism Is this a current diagnosis for this admission?: Yes (7) DNR (do not resuscitate) Is this a current diagnosis for this admission?: Yes (8) Renal mass, right Is this a current diagnosis for this admission?: YesPlan: Should be investigated further when the patient is stable (9) Alcohol withdrawal Qualifiers: Complication of substance-induced condition: with unspecified complication Qualified Code(s): F10.239 - Alcohol dependence with withdrawal, unspecified Is this a current diagnosis for this admission?: YesPlan: Continue present regimen - Time Time Spent with patient: 25-34 minutes
[2016-07-28] MEDS: LORAZEPAM INJ 2 MG/1 ML VIAL IV PRN ×3 (00:36→16:23)
[2016-07-28] MEDS: LORAZEPAM 1 MG TABLET PO SCH ×6 (01:43→23:01)
[2016-07-28] MEDS: THIAMINE HCL 100 MG TABLET PO SCH (09:35)
[2016-07-28] MEDS: FAMOTIDINE 20 MG TABLET PO SCH ×2 (09:35→23:00)
[2016-07-28] MEDS: METOPROLOL TARTRATE 50 MG TABLET PO SCH ×2 (09:36→23:01)
[2016-07-28] MEDS ORDERED: HYDRALAZINE HCL INJ/PF 20 MG/1 ML SDV IV PRN (11:51)
[2016-07-28] MEDS ORDERED: CLONIDINE HCL 0.1 MG TABLET ONE (12:02)
--- NOTE | 2016-07-28 16:53 | PDOC PROGRESS REPORT ---
Subjective Progress Note for:: 07/28/16 Subjective:: Reason for visit: Follow-up acute pancreatitis, all withdrawal syndrome and early DTs Hospital course: Per H&P " HALLE ROSARIO is a 56 year old male c/o epigastric abd. pain this am at 4 am. Has been drinking ETOH- states he was drunk this am. Called EMS. Hx pancreatitis and he thinks he has it again. Previous surgery for esophogeal stricture-severe with pancreatitis in [place] last hear. Vomiting, no diarrhea. Constipated. No fever. In the ER patient patient was found to be in alcohol withdrawal , tremulous He was extremely dehydrated with a sodium of 150 , calcium of 12.5 ; lipase 1634 " Patient was admitted to the hospital and treated empirically for an acute pancreatitis and initially showed some improvement, he was noted to be intoxicated and presentation with an alcohol level greater than 300, since admission he has taken a turn for the worse now showing evidence of agitation and delirium consistent with acute delirium tremens. Subjective: Patient is not oriented to person or place and therefore cannot provide a reliable review of systems her medical history. ROS: Unobtainable. Physical Exam Vital Signs: Temp Pulse Resp BP Pulse Ox 97.0 F 87 16 176/111 H 100 07/28/16 07:41 07/28/16 14:00 07/28/16 11:43 07/28/16 11:43 07/28/16 07:41 Intake & Output 07/27/16 07/28/16 07/29/16 06:59 06:59 06:59 Intake Total 2440 2339 500 Output Total 502 Balance 1938 2339 500 Weight 63.7 kg 63.7 kg EXAM GENERAL: NAD, cooperative staff at present; well developed, well nourished; no obese; alert and oriented to person only HEENT: normocephalic, atraumatic; no conjunctival injection, no scleral icterus ; oral mucosa dry; RESPIRATORY: no accessory muscle use, no increased WOB, good air entry bilaterally; no wheezes, rales, rhonchi; no inspiratory crackles CARDIO: no JVD; RRR; no systolic murmur; no tachycardia GI: soft; nondistended; normal bowel sounds; no rebound, rigidity, guarding; mild epigastric tenderness to deep palpation. VASCULAR: no abdominal bruit; no pallor; 2+ radial, DP pulse; normal capillary refill EXTREMITIES: no calf tender; no palpable cords in calf; no clubbing, cyanosis , pedal edema PSYCH: normal affect, normal mood, confused SKIN: warm; moist; no petechiae; no telengectasias; no jaundice; no rash Results Laboratory Results: 07/27/16 05:51 07/27/16 05:51 Labs reviewed, potassium was low, normal renal function, lipase trending down. Impressions: Chest X-Ray 07/24/16 12:17 IMPRESSION: COPD. NO ACUTE RADIOGRAPHIC FINDING IN THE CHEST. Abdomen/Pelvis CT 07/25/16 06:00 IMPRESSION: No CT evidence of acute pancreatitis on the current scan Post gastric pull-through, anterior mediastinum Stable posterior mediastinal fluid collection in the expected location of the esophagus, 14 x 6 x 5 cm in size. Status: Imported from PACS - Report reviewed Assessment & Plan - Diagnosis (1) Alcohol abuse Is this a current diagnosis for this admission?: YesPlan: Alcohol cessation counseling when able (2) Alcohol withdrawal Qualifiers: Complication of substance-induced condition: with delirium Qualified Code(s): F10.231 - Alcohol dependence with withdrawal delirium Is this a current diagnosis for this admission?: YesPlan: Continue thiamine therapy, continue scheduled and as needed benzodiazepines. (3) Pancreatitis Qualifiers: Chronicity: acute Pancreatitis type: alcohol induced Acute pancreatitis complication: unspecified Qualified Code(s): K85.20 - Alcohol induced acute pancreatitis without necrosis or infection Is this a current diagnosis for this admission?: YesPlan: Presumed diagnosis on the basis of a markedly elevated lipase and recent alcohol use, however other considerations include peptic ulcer disease or alcohol-induced gastritis. Continue to trend his lipase, continue clear liquid diet for now. If his condition fails to improve consider gastroenterology consult for possible endoscopy. (4) DNR (do not resuscitate) Is this a current diagnosis for this admission?: YesPlan: Per the admitting physician. Unable to confirm given patient's current mental state. (5) Renal mass, right Is this a current diagnosis for this admission?: YesPlan: Chronic per radiology. Continue to monitor as an outpatient. 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 (7) Hypertension Qualifiers: Hypertension type: essential hypertension Qualified Code(s): I10 - Essential (primary) hypertension Is this a current diagnosis for this admission?: YesPlan: Accelerated and exacerbated by the DTs. Add clonidine and titrate antihypertensive regimen to effect. (8) Tobacco dependency Is this a current diagnosis for this admission?: YesPlan: Cessation counseling when able (9) Hypokalemia Is this a current diagnosis for this admission?: YesPlan: Likely related to chronic alcohol use, continue to replace and monitor. (10) Hypomagnesemia Is this a current diagnosis for this admission?: YesPlan: Likely related to chronic alcohol use, continue to replace and monitor. - Time Time Spent with patient: 35 or more minutes Anticipated discharge: Home Within: within 72 hours
[2016-07-28] MEDS ORDERED: POTASSIUM CHLORIDE 10 MEQ TABLET.SA PO SCH (22:00)
[2016-07-28] MEDS: CLONIDINE HCL 0.1 MG TABLET PO SCH (23:00)
[2016-07-29] MEDS: LORAZEPAM 1 MG TABLET PO SCH ×6 (02:03→22:47)
[2016-07-29 05:55] LABS: HEMATOCRIT 35.4 % (37.9-51.0); HEMOGLOBIN 11.6 g/dL (13.5-17.0); HGB HCT DIFFERENCE -0.6; MEAN CORPUSCULAR HEMOGLOBIN 26.9 pg (27.0-33.4); MEAN CORPUSCULAR HGB CONC 32.8 g/dL (32.0-36.0); MEAN CORPUSCULAR VOLUME 82 fl (80-97); RED BLOOD COUNT 4.31 10^6/uL (4.35-5.55); RED CELL DISTRIBUTION WIDTH 20.8 % (11.5-14.0); WHITE BLOOD COUNT 8.9 10^3/uL (4.0-10.5)
[2016-07-29 06:15] LABS: ALANINE AMINOTRANSFERASE 25 U/L (21-72); ALBUMIN 2.8 g/dL (3.5-5.0); ALKALINE PHOSPHATASE 130 U/L (38-126); ANION GAP 8 (5-19); ASPARTATE AMINO TRANSFERASE 31 U/L (17-59); BILIRUBIN,TOTAL 0.5 mg/dL (0.2-1.3); BLOOD UREA NITROGEN 9 mg/dL (7-20); C-REACTIVE PROTEIN 39.5 mg/L (<10.0); CALCIUM 8.4 mg/dL (8.4-10.2); CARBON DIOXIDE 30 mmol/L (22-30); CHLORIDE 101 mmol/L (98-107); CREATININE RESULT 0.68 mg/dL (0.52-1.25); GLUCOSE 69 mg/dL (75-110); LIPASE 414.7 U/L (23-300); PHOSPHORUS 2.4 mg/dL (2.5-4.5); POTASSIUM 3.1 mmol/L (3.6-5.0); SODIUM 138.7 mmol/L (137-145); TOTAL PROTEIN 6.7 g/dL (6.3-8.2)
[2016-07-29 06:21] LABS: MAGNESIUM 1.2 mg/dL (1.6-2.3)
[2016-07-29] MEDS ORDERED: MAGNESIUM SULFATE 4 GM/100 ML RTUPB IV ONE (08:30)
[2016-07-29] MEDS: THIAMINE HCL 100 MG TABLET PO SCH (10:00)
[2016-07-29] MEDS: METOPROLOL TARTRATE 50 MG TABLET PO SCH ×2 (10:00→22:48)
[2016-07-29] MEDS: FAMOTIDINE 20 MG TABLET PO SCH ×2 (10:00→22:47)
[2016-07-29] MEDS: CLONIDINE HCL 0.1 MG TABLET PO SCH ×2 (10:01→22:48)
--- NOTE | 2016-07-29 13:07 | PDOC PROGRESS REPORT ---
Subjective Progress Note for:: 07/29/16 Subjective:: Reason for visit: Follow-up acute pancreatitis, all withdrawal syndrome and early DTs Hospital course: Per H&P " HALLE ROSARIO is a 56 year old male c/o epigastric abd. pain this am at 4 am. Has been drinking ETOH- states he was drunk this am. Called EMS. Hx pancreatitis and he thinks he has it again. Previous surgery for esophogeal stricture-severe with pancreatitis in [place] last hear. Vomiting, no diarrhea. Constipated. No fever. In the ER patient patient was found to be in alcohol withdrawal , tremulous He was extremely dehydrated with a sodium of 150 , calcium of 12.5 ; lipase 1634 " Patient was admitted to the hospital and treated empirically for an acute pancreatitis and initially showed some improvement, he was noted to be intoxicated upon presentation with an alcohol level greater than 300. since admission he has taken a turn for the worse showing evidence of agitation and delirium consistent with acute delirium tremens. Subjective: Patient better oriented to person or place but tangential and rambling thought processes limited his review of systems and medical history, he is at least cooperative with his exam today.. ROS: Unobtainable due to mental state. Physical Exam Vital Signs: Temp Pulse Resp BP Pulse Ox 97.4 F 61 16 129/85 H 99 07/29/16 07:35 07/29/16 07:35 07/29/16 07:35 07/29/16 07:35 07/29/16 07:35 Intake & Output 07/28/16 07/29/16 07/30/16 06:59 06:59 06:59 Intake Total 2339 1827 Balance 2339 1827 Weight 63.7 kg 65.1 kg EXAM GENERAL: NAD, cooperative staff at present; well developed, well nourished; no obese; alert and oriented to person, place and time which is a marked improvement from yesterday HEENT: normocephalic, atraumatic; no conjunctival injection, no scleral icterus ; oral mucosa dry; RESPIRATORY: no accessory muscle use, no increased WOB, good air entry bilaterally; no wheezes, rales, rhonchi; no inspiratory crackles CARDIO: no JVD; RRR; no systolic murmur; no tachycardia GI: soft; nondistended; normal bowel sounds; no rebound, rigidity, guarding; mild epigastric tenderness to deep palpation. VASCULAR: no abdominal bruit; no pallor; 2+ radial, DP pulse; normal capillary refill EXTREMITIES: no calf tender; no palpable cords in calf; no clubbing, cyanosis , pedal edema PSYCH: normal affect, normal mood, still confused SKIN: warm; moist; no petechiae; no telengectasias; no jaundice; no rash Results Laboratory Results: 07/29/16 05:45 07/29/16 05:45 07/29/16 07/29/16 07/29/16 05:45 05:45 05:45 WBC 8.9 RBC 4.31 L Hgb 11.6 L Hct 35.4 L MCV 82 MCH 26.9 L MCHC 32.8 RDW 20.8 H Plt Count 177 Sodium 138.7 Potassium 3.1 L Chloride 101 Carbon Dioxide 30 Anion Gap 8 BUN 9 Creatinine 0.68 Est GFR ( Amer) > 60 Est GFR (Non-Af Amer) > 60 Glucose 69 L Calcium 8.4 Phosphorus 2.4 L Magnesium 1.2 L* Total Bilirubin 0.5 AST 31 ALT 25 Alkaline Phosphatase 130 H Ammonia < 8.7 L C-Reactive Protein 39.5 H Total Protein 6.7 Albumin 2.8 L Lipase 414.7 H Labs reviewed, significant hypomagnesemia and hyperkalemia persist. Lipase is trending down but ever so slowly. Assessment & Plan - Diagnosis (1) Alcohol abuse Is this a current diagnosis for this admission?: YesPlan: Alcohol cessation counseling when able (2) Alcohol withdrawal Qualifiers: Complication of substance-induced condition: with delirium Qualified Code(s): F10.231 - Alcohol dependence with withdrawal delirium Is this a current diagnosis for this admission?: YesPlan: Continue thiamine therapy, continue scheduled and as needed benzodiazepines. (3) Pancreatitis Qualifiers: Chronicity: acute Pancreatitis type: alcohol induced Acute pancreatitis complication: unspecified Qualified Code(s): K85.20 - Alcohol induced acute pancreatitis without necrosis or infection Is this a current diagnosis for this admission?: YesPlan: Presumed diagnosis on the basis of a markedly elevated lipase and recent alcohol use, however other considerations include peptic ulcer disease or alcohol-induced gastritis. Continue to trend his lipase and CRP, continue clear liquid diet for now. If his condition fails to improve consider gastroenterology consult for possible endoscopy. He has a very unusual CT scan showing altered anatomy from prior gastric pull-through surgery and a persistent periesophageal fluid filled mass. (4) DNR (do not resuscitate) Is this a current diagnosis for this admission?: Yes (5) Renal mass, right Is this a current diagnosis for this admission?: Yes (6) Gastroesophageal reflux disease Qualifiers: Esophagitis presence: esophagitis presence not specified Qualified Code(s): K21.9 - Gastro-esophageal reflux disease without esophagitis Is this a current diagnosis for this admission?: Yes (7) Hypertension Qualifiers: Hypertension type: essential hypertension Qualified Code(s): I10 - Essential (primary) hypertension Is this a current diagnosis for this admission?: Yes (8) Tobacco dependency Is this a current diagnosis for this admission?: Yes (9) Hypokalemia Is this a current diagnosis for this admission?: YesPlan: Likely related to chronic alcohol use, continue to replace and monitor. (10) Hypomagnesemia Is this a current diagnosis for this admission?: YesPlan: Likely related to chronic alcohol use, continue to replace and monitor. - Time Time Spent with patient: 25-34 minutes - Plan Summary Plan Summary: We'll likely need another 2-3 days in the hospital though he is finally starting to show some improvement. We'll advance his diet to full liquid today and monitor for response and change in his laboratory trends.
[2016-07-29] MEDS: POTASSIUM CHLORIDE 10 MEQ TABLET.SA PO SCH ×2 (14:51→22:47)
[2016-07-30] MEDS: LORAZEPAM 1 MG TABLET PO SCH ×3 (02:04→09:00)
[2016-07-30] MEDS: POTASSIUM CHLORIDE 10 MEQ TABLET.SA PO SCH ×3 (06:18→23:02)
[2016-07-30 08:23] LABS: ALANINE AMINOTRANSFERASE 20 U/L (21-72); ALKALINE PHOSPHATASE 118 U/L (38-126); ANION GAP 6 (5-19); ASPARTATE AMINO TRANSFERASE 26 U/L (17-59); BILIRUBIN,TOTAL 0.5 mg/dL (0.2-1.3); BLOOD UREA NITROGEN 12 mg/dL (7-20); C-REACTIVE PROTEIN 54.4 mg/L (<10.0); CARBON DIOXIDE 28 mmol/L (22-30); CHLORIDE 103 mmol/L (98-107); CREATININE RESULT 0.75 mg/dL (0.52-1.25); GLUCOSE 78 mg/dL (75-110); LIPASE 329.7 U/L (23-300); POTASSIUM 3.6 mmol/L (3.6-5.0); SODIUM 137.1 mmol/L (137-145); TOTAL PROTEIN 6.3 g/dL (6.3-8.2)
[2016-07-30] MEDS: FAMOTIDINE 20 MG TABLET PO SCH ×2 (09:01→23:06)
[2016-07-30] MEDS: METOPROLOL TARTRATE 50 MG TABLET PO SCH ×2 (09:01→23:04)
[2016-07-30] MEDS: THIAMINE HCL 100 MG TABLET PO SCH (09:01)
[2016-07-30] MEDS: CLONIDINE HCL 0.1 MG TABLET PO SCH ×2 (09:01→23:08)
[2016-07-30] MEDS: LORAZEPAM 1 MG TABLET PO PRN (14:21)
--- NOTE | 2016-07-30 16:32 | PDOC PROGRESS REPORT ---
Subjective Progress Note for:: 07/30/16 Subjective:: Reason for visit: Follow-up acute pancreatitis, all withdrawal syndrome and early DTs Hospital course: Per H&P " HALLE ROSARIO is a 56 year old male c/o epigastric abd. pain this am at 4 am. Has been drinking ETOH- states he was drunk this am. Called EMS. Hx pancreatitis and he thinks he has it again. Previous surgery for esophogeal stricture-severe with pancreatitis in [place] last hear. Vomiting, no diarrhea. Constipated. No fever. In the ER patient patient was found to be in alcohol withdrawal , tremulous He was extremely dehydrated with a sodium of 150 , calcium of 12.5 ; lipase 1634 " Patient was admitted to the hospital and treated empirically for an acute pancreatitis and initially showed some improvement, he was noted to be intoxicated upon presentation with an alcohol level greater than 300. since admission he has taken a turn for the worse showing evidence of agitation and delirium consistent with acute delirium tremens. Subjective: His mental state continues to improve and he is requiring less Ativan to control his behaviors, he no longer requires wrist restraints. He is largely cooperative with the nursing staff. He denies chest pain, palpitations , dizziness, headache, vision changes, hearing changes, numbness tingling, gait abnormalities, nausea vomiting diarrhea. He does continue to complain of mild left-sided and epigastric discomfort but markedly improved from his presentation. He states a friend brought him a turkey sandwich this morning and he tolerated that without any nausea vomiting or increase in his pain. He is requesting an increase in his diet. ROS: per HPI plus a total of 10 systems reviewed, pertinent positives and negatives noted above, remaining systems negative. Physical Exam Vital Signs: Temp Pulse Resp BP Pulse Ox 97.2 F 67 16 124/80 100 07/30/16 07:41 07/30/16 07:41 07/30/16 07:41 07/30/16 07:41 07/30/16 07:41 Intake & Output 07/29/16 07/30/16 07/31/16 06:59 06:59 06:59 Intake Total 1827 942 Output Total 1200 Balance 1827 -258 Weight 65.1 kg 66.3 kg EXAM GENERAL: NAD, cooperative staff at present; well developed, thin; no obese; alert and oriented to person, place and time continues to show improvement with each passing day, he actually remembered me by name and occupation and specifics regarding his situation HEENT: normocephalic, atraumatic; no conjunctival injection, no scleral icterus ; oral mucosa dry; RESPIRATORY: no accessory muscle use, no increased WOB, good air entry bilaterally; no wheezes, rales, rhonchi; no inspiratory crackles CARDIO: no JVD; RRR; no systolic murmur; no tachycardia GI: soft; nondistended; normal bowel sounds; no rebound, rigidity, guarding; mild epigastric and left upper quadrant tenderness but only to deep palpation. VASCULAR: no abdominal bruit; no pallor; 2+ radial, DP pulse; normal capillary refill EXTREMITIES: no calf tender; no palpable cords in calf; no clubbing, cyanosis , pedal edema PSYCH: normal affect, normal mood. He is remorseful regarding his alcohol use SKIN: warm; moist; no petechiae; no telengectasias; no jaundice; no rash Results Laboratory Results: 07/29/16 05:45 07/30/16 07:09 07/30/16 07:09 Sodium 137.1 Potassium 3.6 Chloride 103 Carbon Dioxide 28 Anion Gap 6 BUN 12 Creatinine 0.75 Est GFR ( Amer) > 60 Est GFR (Non-Af Amer) > 60 Glucose 78 Calcium 9.0 Total Bilirubin 0.5 AST 26 ALT 20 L Alkaline Phosphatase 118 C-Reactive Protein 54.4 H Total Protein 6.3 Albumin 3.0 L Lipase 329.7 H Impressions: Chest X-Ray 07/24/16 12:17 IMPRESSION: COPD. NO ACUTE RADIOGRAPHIC FINDING IN THE CHEST. Abdomen/Pelvis CT 07/25/16 06:00 IMPRESSION: No CT evidence of acute pancreatitis on the current scan Post gastric pull-through, anterior mediastinum Stable posterior mediastinal fluid collection in the expected location of the esophagus, 14 x 6 x 5 cm in size. Assessment & Plan - Diagnosis (1) Alcohol abuse Is this a current diagnosis for this admission?: YesPlan: Alcohol cessation counseling discussed with him at the bedside, he seems receptive at this time. He states he's been in alcohol treatment and inpatient rehabilitation in the past with good success. He claims to have been dry for a year until this relapse for reasons he is unable or unwilling to elucidate. (2) Alcohol withdrawal Qualifiers: Complication of substance-induced condition: with delirium Qualified Code(s): F10.231 - Alcohol dependence with withdrawal delirium Is this a current diagnosis for this admission?: YesPlan: Improved. Continue thiamine therapy, decrease scheduled and continue as needed benzodiazepines. (3) Pancreatitis Qualifiers: Chronicity: acute Pancreatitis type: alcohol induced Acute pancreatitis complication: unspecified Qualified Code(s): K85.20 - Alcohol induced acute pancreatitis without necrosis or infection Is this a current diagnosis for this admission?: YesPlan: Presumed diagnosis on the basis of a markedly elevated lipase and recent alcohol use, however other considerations include peptic ulcer disease or alcohol-induced gastritis. his lipase and CRP remained elevated, Continue to trend. He has a very unusual CT scan showing altered anatomy from prior partial esophagectomy and reanastomosis, gastric pull-through surgery, and also with a persistent periesophageal fluid filled mass that he now relates was necessary due to a tight distal esophageal stricture from chronic alcohol use. Given his clinical improvement we will advance his diet and monitor for response. (4) DNR (do not resuscitate) Is this a current diagnosis for this admission?: Yes (5) Renal mass, right Is this a current diagnosis for this admission?: Yes (6) Gastroesophageal reflux disease Qualifiers: Esophagitis presence: esophagitis presence not specified Qualified Code(s): K21.9 - Gastro-esophageal reflux disease without esophagitis Is this a current diagnosis for this admission?: Yes (7) Hypertension Qualifiers: Hypertension type: essential hypertension Qualified Code(s): I10 - Essential (primary) hypertension Is this a current diagnosis for this admission?: Yes (8) Tobacco dependency Is this a current diagnosis for this admission?: Yes (9) Hypokalemia Is this a current diagnosis for this admission?: Yes (10) Hypomagnesemia Is this a current diagnosis for this admission?: Yes - Time Time Spent with patient: 25-34 minutes Medications reviewed and adjusted accordingly: Yes Anticipated discharge: Home Within: within 24 hours
[2016-07-30] MEDS ORDERED: HALOPERIDOL LACTATE INJ 5 MG/1 ML VIAL IV ONE (16:57)
[2016-07-30] MEDS ORDERED: HALOPERIDOL LACTATE INJ 5 MG/1 ML VIAL ONE (17:00)
[2016-07-30] MEDS ORDERED: HALOPERIDOL LACTATE INJ 5 MG/1 ML VIAL IV PRN (17:01)
[2016-07-30] MEDS: LORAZEPAM INJ 2 MG/1 ML VIAL IV PRN ×2 (18:15→22:50)
[2016-07-30] MEDS: HALOPERIDOL 1 MG TABLET PO SCH (23:03)
[2016-07-31] MEDS: LORAZEPAM 1 MG TABLET PO PRN ×2 (01:23→21:52)
[2016-07-31] MEDS: LORAZEPAM INJ 2 MG/1 ML VIAL IV PRN ×2 (02:58→06:43)
[2016-07-31] MEDS: POTASSIUM CHLORIDE 10 MEQ TABLET.SA PO SCH ×3 (06:16→21:46)
[2016-07-31 08:32] LABS: ALANINE AMINOTRANSFERASE 22 U/L (21-72); ALBUMIN 2.9 g/dL (3.5-5.0); ALKALINE PHOSPHATASE 104 U/L (38-126); ANION GAP 9 (5-19); ASPARTATE AMINO TRANSFERASE 26 U/L (17-59); BILIRUBIN,TOTAL 0.4 mg/dL (0.2-1.3); BLOOD UREA NITROGEN 11 mg/dL (7-20); C-REACTIVE PROTEIN 45.9 mg/L (<10.0); CALCIUM 9.8 mg/dL (8.4-10.2); CARBON DIOXIDE 23 mmol/L (22-30); CHLORIDE 106 mmol/L (98-107); CREATININE RESULT 0.62 mg/dL (0.52-1.25); GLUCOSE 84 mg/dL (75-110); LIPASE 397.6 U/L (23-300); MAGNESIUM 1.5 mg/dL (1.6-2.3); POTASSIUM 4.3 mmol/L (3.6-5.0); SODIUM 137.5 mmol/L (137-145); TOTAL PROTEIN 6.1 g/dL (6.3-8.2)
[2016-07-31] MEDS: CLONIDINE HCL 0.1 MG TABLET PO SCH ×2 (10:06→21:45)
[2016-07-31] MEDS: THIAMINE HCL 100 MG TABLET PO SCH (10:06)
[2016-07-31] MEDS: FAMOTIDINE 20 MG TABLET PO SCH ×2 (10:06→21:45)
[2016-07-31] MEDS: METOPROLOL TARTRATE 50 MG TABLET PO SCH ×2 (10:06→21:45)
[2016-07-31] MEDS: HALOPERIDOL 1 MG TABLET PO SCH ×2 (10:07→21:45)
[2016-07-31] MEDS ORDERED: MORPHINE SULFATE 10 MG/ML INJ IV PRN (11:45)
[2016-07-31] MEDS ORDERED: HYDROCODONE/ACETAMINOPHEN 5-325 MG TABLET PO PRN (11:45)
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
[2016-08-01] MEDS: POTASSIUM CHLORIDE 10 MEQ TABLET.SA PO SCH (06:16)
[2016-08-01 06:46] LABS: ALANINE AMINOTRANSFERASE 24 U/L (21-72); ALKALINE PHOSPHATASE 104 U/L (38-126); ANION GAP 10 (5-19); ASPARTATE AMINO TRANSFERASE 23 U/L (17-59); BILIRUBIN,TOTAL 0.3 mg/dL (0.2-1.3); BLOOD UREA NITROGEN 11 mg/dL (7-20); C-REACTIVE PROTEIN 44.9 mg/L (<10.0); CARBON DIOXIDE 22 mmol/L (22-30); CHLORIDE 103 mmol/L (98-107); CREATININE RESULT 0.72 mg/dL (0.52-1.25); GLUCOSE 79 mg/dL (75-110); LIPASE 273.3 U/L (23-300); MAGNESIUM 1.4 mg/dL (1.6-2.3); PHOSPHORUS 3.7 mg/dL (2.5-4.5); POTASSIUM 5.1 mmol/L (3.6-5.0); SODIUM 134.8 mmol/L (137-145); TOTAL PROTEIN 6.5 g/dL (6.3-8.2)
[2016-08-01] MEDS: MAGNESIUM SULFATE/D5W 100 ML IV SCH ×2 (08:36→10:01)
[2016-08-01] MEDS: CLONIDINE HCL 0.1 MG TABLET PO SCH (10:00)
[2016-08-01] MEDS: THIAMINE HCL 100 MG TABLET PO SCH (10:00)
[2016-08-01] MEDS: METOPROLOL TARTRATE 50 MG TABLET PO SCH (10:01)
[2016-08-01] MEDS: FAMOTIDINE 20 MG TABLET PO SCH (10:01)
[2016-08-01] MEDS: HALOPERIDOL 1 MG TABLET PO SCH (10:01)
[2016-08-01 11:38] VITALS: BP 130/89
--- NOTE | 2016-08-01 14:16 | PDOC DISCHARGE SUMMARY ---
General - Admit/Disc Date/PCP Admission Date/Primary Care Provider: 07/24/16 12:29 MARTHA GARRETT MD Discharge Date: 08/01/16 - Discharge Diagnosis (1) Alcohol abuse Is this a current diagnosis for this admission?: YesSummary: Patient was counseled regarding his chronic alcohol use but does not seem interested in cessation at this time. (2) Alcohol withdrawal Is this a current diagnosis for this admission?: YesSummary: Symptoms of delirium tremens have finally resolved, he is over a week past his last alcohol consumption and should be well outside the window for further complications, assuming abstinence. (3) Pancreatitis Is this a current diagnosis for this admission?: YesSummary: His inflammatory markers remain mildly elevated however they are trending down and he is tolerating a regular diet with resolution of his abdominal pain. (4) DNR (do not resuscitate) Is this a current diagnosis for this admission?: Yes (5) Renal mass, right Is this a current diagnosis for this admission?: Yes (6) Gastroesophageal reflux disease Is this a current diagnosis for this admission?: Yes (7) Hypertension Is this a current diagnosis for this admission?: Yes (8) Tobacco dependency Is this a current diagnosis for this admission?: Yes (9) Hypokalemia Is this a current diagnosis for this admission?: Yes (10) Hypomagnesemia Is this a current diagnosis for this admission?: YesSummary: He received another 2 g of IV magnesium sulfate prior to his discharge. - Additional Information Resuscitation Status: Do Not Resuscitate Discharge Diet: As Tolerated Discharge Activity: Activity As Tolerated Home Medications: Sertraline HCl [Zoloft] 200 mg PO DAILY 07/24/16 Metoprolol Tartrate [Lopressor 50 mg Tablet] 50 mg PO Q12 #60 tablet 08/01/16 Thiamine HCl [Thiamine 100 mg Tablet] 100 mg PO DAILY tablet 08/01/16 History of Present Illness Patient complains of: c/o epigastric abd. History of Present Illness: HALLE ROSARIO is a 56 year old male c/o epigastric abd. pain this am at 4 am. Has been drinking ETOH- states he was drunk this am. Called EMS. Hx pancreatitis and he thinks he has it again. Previous surgery for esophogeal stricture-severe with pancreatitis in [place] last hear. Vomiting, no diarrhea. Constipated. No fever. In the ER patient patient was found to be in alcohol withdrawal , tremulous He was extremely dehydrated with a sodium of 150 , calcium of 12.5 ; lipase 1634 " Hospital Course Hospital Course: Patient was admitted to the hospital and treated empirically for an acute pancreatitis and initially showed some improvement, he was noted to be intoxicated upon presentation with an alcohol level greater than 300. since admission he has taken a turn for the worse showing evidence of agitation and delirium consistent with acute delirium tremens. His mental state had improved and he was requiring less Ativan to control his behaviors, and no longer required wrist restraints until last night. His behaviors have become more bizarre during the afternoon as he was using his telephone to take pictures of the nursing staff trying to catch them in compromising poses. By evening it would seem he'd had enough as he made a sudden break for the exit. The staff was able to intervene at which point he became combative and violent requiring security and local police to finally subdue him. He spent most of the night in restraints both pharmaceutically and physically. Interestingly, he has full recognition of those events this morning and expresses no remorse. States he simply wanted to leave. After much counseling from myself and the nursing staff, and under the watchful eye of a sitter, the patient behaved himself for the last 24 hours has had no further outbursts, no confusion and is calm and cooperative with staff. He is well aware of his behaviors previous 48 hours and recognizes they've prolonged his hospitalization. As he shows no further evidence of delirium tremens and has remained cooperative with the staff showing no ill effects from prior events and think he is stable for discharge home. He was counseled yet again regarding his alcohol use and its deleterious effects but he does not seem interested in cessation at this time and it would not surprise me if we see him back in the emergency department in under a week. I offered to assist him with cessation utilizing low-dose tapered benzodiazepines, recommended voluntary admission to rehabilitation but he is not interested in these interventions at this time. As he is now clear and lucid, alert and oriented to person place and time without active medical problems he can be discharged home. Physical Exam Vital Signs: Temp Pulse Resp BP Pulse Ox 98.2 F 63 20 130/89 H 99 08/01/16 11:30 08/01/16 11:30 08/01/16 11:30 08/01/16 11:30 08/01/16 11:30 Intake & Output 07/31/16 08/01/16 08/02/16 06:59 06:59 06:59 Intake Total 535 1573 Output Total 550 Balance -15 1573 Weight 68 kg 68 kg Results Laboratory Results: 07/29/16 05:45 08/01/16 06:13 08/01/16 06:13 Sodium 134.8 L Potassium 5.1 H Chloride 103 Carbon Dioxide 22 Anion Gap 10 BUN 11 Creatinine 0.72 Est GFR ( Amer) > 60 Est GFR (Non-Af Amer) > 60 Glucose 79 Calcium 10.0 Phosphorus 3.7 Magnesium 1.4 L Total Bilirubin 0.3 AST 23 ALT 24 Alkaline Phosphatase 104 C-Reactive Protein 44.9 H Total Protein 6.5 Albumin 3.0 L Lipase 273.3 Impressions: Chest X-Ray 07/24/16 12:17 IMPRESSION: COPD. NO ACUTE RADIOGRAPHIC FINDING IN THE CHEST. Abdomen/Pelvis CT 07/25/16 06:00 IMPRESSION: No CT evidence of acute pancreatitis on the current scan Post gastric pull-through, anterior mediastinum Stable posterior mediastinal fluid collection in the expected location of the esophagus, 14 x 6 x 5 cm in size. Qualifiers PATEINT BEING DISCHARGED WITH ANY OF THE FOLLOWING DIAGNOSIS?: No VTE patient discharged on overlapping Therapy?: Yes Plan Discharge Plan: He is to follow-up with his primary care provider in one week, return to the emergency department for any recurrence of his symptoms. Time Spent: Greater than 30 Minutes
== END 2016-08-01 12:45 | disposition home or self-care (01) | DRG 439 ==
LOC: ER 07:52 → UNDOADMIN 11:44 → EH 11:44 → 3S 15:30 → 4S 07-31 06:35
PROVIDERS: ADMIT Emergency Medicine; ATTEND Emergency Medicine
PROC: 3E0234Z Introduction of Serum, Toxoid and Vaccine into Muscle, Percutaneous Approach (ICD-10-PCS; principal; 2016-07-24)
DX: K85.20 Alcohol induced acute pancreatitis without necrosis or infection (principal); K86.3 Pseudocyst of pancreas; F10.231 Alcohol dependence with withdrawal delirium; E87.0 Hyperosmolality and hypernatremia; Y90.8 Blood alcohol level of 240 mg/100 ml or more; Z66 Do not resuscitate; N28.89 Other specified disorders of kidney and ureter; K21.9 Gastro-esophageal reflux disease without esophagitis; I10 Essential (primary) hypertension; E87.6 Hypokalemia; E83.42 Hypomagnesemia; E86.0 Dehydration; F10.229 Alcohol dependence with intoxication, unspecified; K59.00 Constipation, unspecified; F32.9 Major depressive disorder, single episode, unspecified; F17.210 Nicotine dependence, cigarettes, uncomplicated; E83.52 Hypercalcemia; J44.9 Chronic obstructive pulmonary disease, unspecified; Z23 Encounter for immunization; Z81.1 Family history of alcohol abuse and dependence
CPT/HCPCS: 36415; 71010; 74177; 80048; 80053; 80061; 80307; 81001; 82140; 82962; 83690; 83735; 84100; 84443; 85025; 85027; 86140; 90686; 93005; 93010; 96361; 96374; 96375; 99285; J0360; J1170; J1630; J2060; J2270; J2405; J3411; J3475; J3480; J3490; J7030; S0164

== ENCOUNTER 2016-12-17 06:23 | Inpatient (IN) | payer MEDICARE ==
[2016-12-17] MEDS ORDERED: NORMAL SALINE 1000 ML 1,000 ML IV PRN (06:58)
[2016-12-17 07:31] LABS: ABSOLUTE MONOCYTES (AUTO) 0.9 10^3/uL (0.1-1.4); ABSOLUTE NEUT (AUTO) 11.6 10^3/uL (1.7-8.2); BASOPHILS % (AUTO) 0.3 % (0-2); EOSINOPHILS % (AUTO) 0.2 % (0-6); HEMATOCRIT 36.5 % (37.9-51.0); HEMOGLOBIN 12.1 g/dL (13.5-17.0); HGB HCT DIFFERENCE -0.2; LYMPHOCYTES % (AUTO) 7.6 % (13-45); MEAN CORPUSCULAR HEMOGLOBIN 29.3 pg (27.0-33.4); MEAN CORPUSCULAR HGB CONC 33.1 g/dL (32.0-36.0); MEAN CORPUSCULAR VOLUME 89 fl (80-97); MONOCYTES % (AUTO) 6.7 % (3-13); RED BLOOD COUNT 4.13 10^6/uL (4.35-5.55); RED CELL DISTRIBUTION WIDTH 18.9 % (11.5-14.0); SEGMENTED NEUTROPHILS % (AUTO) 85.2 % (42-78); WHITE BLOOD COUNT 13.6 10^3/uL (4.0-10.5)
[2016-12-17 08:01] LABS: ALANINE AMINOTRANSFERASE 49 U/L (21-72); ALBUMIN 3.5 g/dL (3.5-5.0); ALCOHOL 14 mg/dL (NONE DETECTED); ALKALINE PHOSPHATASE 156 U/L (38-126); ANION GAP 13 (5-19); ASPARTATE AMINO TRANSFERASE 108 U/L (17-59); BILIRUBIN,DIRECT 0.4 mg/dL (0.0-0.4); BILIRUBIN,TOTAL 0.6 mg/dL (0.2-1.3); BLOOD UREA NITROGEN 11 mg/dL (7-20); CARBON DIOXIDE 36 mmol/L (22-30); CHLORIDE 87 mmol/L (98-107); CREATININE RESULT 0.78 mg/dL (0.52-1.25); GLUCOSE 117 mg/dL (75-110); LIPASE 714.8 U/L (23-300); SODIUM 135.9 mmol/L (137-145); TOTAL PROTEIN 7.5 g/dL (6.3-8.2)
--- NOTE | 2016-12-17 08:12 | ER Document Report ---
ED General - General Chief Complaint: Alcohol Withdrawl Stated Complaint: ALCOHOL WITHDRAWAL Time Seen by Provider: 12/17/16 06:57 TRAVEL OUTSIDE OF THE [place] IN LAST 30 DAYS: No - HPI Patient complains to provider of: Alcoholism possible alcohol withdrawals Notes: Patient coming in for evaluation of possible alcohol withdrawals. Patient has a history of alcoholism with pancreatitis associated with his alcoholism. Patient denies any nausea vomiting fevers or chills denies any abdominal pain. Patient states last time he drank was "last night". Patient states drinks heavily throughout the day. Endorses a history of withdrawals denies history of delusions or seizure disorder due to his withdrawal. Upon my evaluation patient is resting comfortably no other complaints - Related Data Allergies/Adverse Reactions: No Known Allergies Allergy (Verified 07/24/16 07:59) Home Medications: Current Home Medications Metoprolol Tartrate [Lopressor 50 mg Tablet] 50 mg PO Q12 12/17/16 [History] Sertraline HCl [Zoloft] 200 mg PO DAILY 12/17/16 [History] Past Medical History - Social History Smoking Status: Current Every Day Smoker Frequency of alcohol use: Heavy Family History: Reviewed & Not Pertinent Patient has suicidal ideation: No Patient has homicidal ideation: No - Past Medical History Cardiac Medical History: Reports: Hx Hypertension Renal/ Medical History: Denies: Hx Peritoneal Dialysis GI Medical History: Reports: Hx Gastroesophageal Reflux Disease, Hx Hiatal Hernia Psychiatric Medical History: Reports: Hx Depression Past Surgical History: Reports: Hx Abdominal Surgery, Hx Tonsillectomy, Other - Esophageal surgery - Immunizations Hx Diphtheria, Pertussis, Tetanus Vaccination: Yes Hx Pneumococcal Vaccination: 10/16/15 Review of Systems - Review of Systems Constitutional: No symptoms reported EENT: No symptoms reported Cardiovascular: No symptoms reported Respiratory: No symptoms reported Gastrointestinal: No symptoms reported Genitourinary: No symptoms reported Male Genitourinary: No symptoms reported Musculoskeletal: No symptoms reported Skin: No symptoms reported Hematologic/Lymphatic: No symptoms reported Neurological/Psychological: Other - Alcohol withdrawals Physical Exam - Vital signs Vitals: Temp Pulse Resp BP Pulse Ox 98.2 F 121 H 16 136/91 H 98 12/17/16 06:35 12/17/16 06:35 12/17/16 06:35 12/17/16 06:35 12/17/16 06:35 Interpretation: Normal - General General appearance: Appears well, Alert - HEENT Head: Normocephalic, Atraumatic Eyes: Normal Pupils: PERRL - Respiratory Respiratory status: No respiratory distress Chest status: Nontender Breath sounds: Normal Chest palpation: Normal - Cardiovascular Rhythm: Regular Heart sounds: Normal auscultation Murmur: No - Abdominal Inspection: Normal Distension: No distension Bowel sounds: Normal Tenderness: Nontender Organomegaly: No organomegaly - Back Back: Normal, Nontender - Extremities General upper extremity: Normal inspection, Nontender, Normal color, Normal ROM , Normal temperature General lower extremity: Normal inspection, Nontender, Normal color, Normal ROM , Normal temperature, Normal weight bearing. No: Uziel's sign - Neurological Neuro grossly intact: Yes Cognition: Normal Orientation: AAOx4 [place] Coma Scale Eye Opening: Spontaneous [place] Coma Scale Verbal: Oriented [place] Coma Scale Motor: Obeys Commands [place] Coma Scale Total: 15 Speech: Normal Motor strength normal: LUE, RUE, LLE, RLE Sensory: Normal - Psychological Associated symptoms: Normal affect, Normal mood - Skin Skin Temperature: Warm Skin Moisture: Dry Skin Color: Normal Course - Re-evaluation Re-evalutation: 12/17/16 14:12 Patient monitored for acute alcohol withdrawal this time no signs of DTs. Concerning as patient has multiple nodular abnormalities which are consistent with his previous admissions. Potassium 2.9 mag 0.9 elevated calcium of 18. Patient does admit to taking multiple antacids such as Tums patient has signs of alkalosis more likely related to his ingestion of Tums. Because of the multiple electrolyte abnormalities need for IV replacement and with EKG changes related to electrolyte abnormalities will admit the patient to hospital service for further evaluation. - Vital Signs Vital signs: Temp Pulse Resp BP Pulse Ox 98.2 F 78 14 182/133 H 97 12/17/16 06:35 12/17/16 12:27 12/17/16 12:27 12/17/16 09:49 12/17/16 12:27 - Laboratory Result Diagrams: 12/17/16 07:20 12/17/16 07:20 Laboratory results interpreted by me: 12/17/16 12/17/16 12/17/16 07:20 07:20 08:06 WBC 13.6 H RBC 4.13 L Hgb 12.1 L Hct 36.5 L RDW 18.9 H Seg Neutrophils % 85.2 H Lymphocytes % 7.6 L Absolute Neutrophils 11.6 H VBG pH VBG HCO3 Sodium 135.9 L Potassium 2.9 L* Chloride 87 L Carbon Dioxide 36 H Glucose 117 H Calcium 18.3 H* Magnesium 0.9 L* AST 108 H Alkaline Phosphatase 156 H Lipase 714.8 H Urine Protein 30 H Ur Leukocyte Esterase TRACE H Salicylates < 1.0 L Acetaminophen < 10 L 12/17/16 08:58 WBC RBC Hgb Hct RDW Seg Neutrophils % Lymphocytes % Absolute Neutrophils VBG pH 7.52 H VBG HCO3 40.1 H Sodium Potassium Chloride Carbon Dioxide Glucose Calcium Magnesium AST Alkaline Phosphatase Lipase Urine Protein Ur Leukocyte Esterase Salicylates Acetaminophen Discharge - Discharge Clinical Impression: Chronic alcoholism, Tobacco dependency, Hypercalcemia, Acute hypokalemia, Hypomagnesemia Hypertension Qualifiers: Hypertension type: essential hypertension Qualified Code(s): I10 - Essential ( primary) hypertension Disposition: ADMITTED INPATIENT Admitting Provider: [facility] Admitted: [facility]
[2016-12-17 08:17] LABS: MAGNESIUM 0.9 mg/dL (1.6-2.3)
[2016-12-17 08:18] LABS: CALCIUM 18.3 mg/dL (8.4-10.2); POTASSIUM 2.9 mmol/L (3.6-5.0)
[2016-12-17 08:22] LABS: APPEARANCE,URINE SLIGHTLY-CLOUDY; BILIRUBIN,URINE NEGATIVE (NEGATIVE); GLUCOSE, URINE NEGATIVE (NEGATIVE); KETONES,URINE NEGATIVE (NEGATIVE); LEUKOCYTE ESTERASE,URINE TRACE (NEGATIVE); NITRITE,URINE NEGATIVE (NEGATIVE); PROTEIN,URINE 30 mg/dL (NEGATIVE); URINE SPECIFIC GRAVITY 1.005; UROBILINOGEN,URINE NEGATIVE mg/dL (<2.0)
[2016-12-17] MEDS ORDERED: MAGNESIUM SULFATE/D5W 100 ML IV SCH (08:30)
[2016-12-17] MEDS ORDERED: THIAMINE HCL 100 MG, FOLIC ACID 1 MG in NORMAL SALINE 50 ML IV ONE (08:30)
[2016-12-17] MEDS ORDERED: POTASSIUM CHLORIDE 10 MEQ TABLET.SA PO ONE (08:30)
[2016-12-17] MEDS ORDERED: POTASSI CL 20 MEQ/50 ML RIDER 50 ML IV ONE (08:31)
[2016-12-17 08:38] LABS: URINE BARBITURATES SCREEN NEGATIVE; URINE METHADONE SCREEN NEGATIVE; URINE OPIATES LOW NEGATIVE; URINE PHENCYCLIDINE SCREEN NEGATIVE
[2016-12-17 09:05] LABS: VENOUS BLOOD BASE EXCESS 14.9 mmol/L; VENOUS BLOOD HCO3 40.1 mmol/L (20-32); VENOUS BLOOD PCO2 50.8 mmHg (35-63); VENOUS BLOOD PH 7.52 (7.30-7.42)
--- NOTE | 2016-12-17 09:54 | RADIOLOGY REPORT (SQ) ---
EXAM DESCRIPTION: CHEST SINGLE VIEW COMPLETED DATE/TIME: 12/17/2016 9:42 am REASON FOR STUDY: sob COMPARISON: July 2016 EXAM PARAMETERS: NUMBER OF VIEWS: One view. TECHNIQUE: Single frontal radiographic view of the chest acquired. RADIATION DOSE: NA LIMITATIONS: None. FINDINGS: LUNGS AND PLEURA: No opacities, masses or pneumothorax. No pleural effusion. Again there is evidence for obstructive lung disease. MEDIASTINUM AND HILAR STRUCTURES: No masses. Contour normal. HEART AND VASCULAR STRUCTURES: Heart normal in size. Normal vasculature. BONES: No acute findings. HARDWARE: None in the chest. OTHER: No other significant finding. IMPRESSION: No significant interval change. No acute findings. Other findings as noted above TECHNICAL DOCUMENTATION: JOB ID: [id number]
[2016-12-17] MEDS ORDERED: ONDANSETRON HCL INJ/PF 4 MG/2 ML SDV IV PRN ×2 (11:45→13:46)
[2016-12-17] MEDS ORDERED: ALBUTEROL SULFATE 0.083% NEB 2.5 MG/3 ML AMPUL NEB PRN (11:45)
[2016-12-17] MEDS ORDERED: ACETAMINOPHEN 325 MG TABLET PO PRN (11:45)
[2016-12-17] MEDS ORDERED: METOPROLOL TARTRATE PF/INJ 5 MG/5 ML SDV IV PRN (12:08)
[2016-12-17] MEDS ORDERED: ENOXAPARIN SODIUM INJ 40 MG/0.4 ML DISP.SYRIN SUBCUT ONE (12:15)
[2016-12-17] MEDS ORDERED: SERTRALINE HCL 50 MG TABLET PO ONE (13:00)
--- NOTE | 2016-12-17 13:37 | PDOC H&P ---
History of Present Illness Admission Date/PCP: 12/17/16 09:44 NALLELY GARRETT PA-C Patient complains of: Alcohol Withdrawl History of Present Illness: HALLE ROSARIO is a 56 year old male coming in for evaluation of possible alcohol withdrawals. Patient has a history of alcoholism with pancreatitis associated with his alcoholism. Patient denies any nausea vomiting fevers or chills denies any abdominal pain. Patient states last time he drank was "last night". Patient states drinks heavily throughout the day. Endorses a history of withdrawals denies history of delusions or seizure disorder due to his withdrawal. Upon my evaluation patient is slightly tremulous. Past Medical History Cardiac Medical History: Reports: Hypertension GI Medical History: Reports: Gastroesophageal Reflux Disease, Hiatal Hernia Psychiatric Medical History: Reports: Alcohol Dependency, Depression, Tobacco Dependency Past Surgical History Past Surgical History: Reports: Tonsillectomy, Other - Esophageal surgery secondary to esophageal stricture Social History Information Source: Patient Lives with: Alone Smoking Status: Current Every Day Smoker Frequency of Alcohol Use: Heavy Hx Recreational Drug Use: Yes Drugs: Cocaine, Marijuana, Hallucinogen Hx Prescription Drug Abuse: No - Advance Directive Resuscitation Status: Full Code Family History Family History: Other - CHF-father, at age 57 Parental Family History Reviewed: Yes Children Family History Reviewed: Yes Sibling(s) Family History Reviewed.: Yes Medication/Allergy Home Medications: Metoprolol Tartrate [Lopressor 50 mg Tablet] 50 mg PO Q12 12/17/16 Sertraline HCl [Zoloft] 200 mg PO DAILY 12/17/16 Allergies/Adverse Reactions: No Known Allergies Allergy (Verified 07/24/16 07:59) Review of Systems Constitutional: ABSENT: chills, fever(s), headache(s), weight gain, weight loss Eyes: ABSENT: visual disturbances Ears: ABSENT: hearing changes Cardiovascular: ABSENT: chest pain, dyspnea on exertion, edema, orthropnea, palpitations Respiratory: ABSENT: cough, hemoptysis Gastrointestinal: ABSENT: abdominal pain, constipation, diarrhea, hematemesis, hematochezia, nausea, vomiting Genitourinary: ABSENT: dysuria, hematuria Musculoskeletal: ABSENT: joint swelling Integumentary: ABSENT: rash, wounds Neurological: PRESENT: tremor(s). ABSENT: abnormal gait, abnormal speech, confusion, dizziness, focal weakness, syncope Psychiatric: PRESENT: anxiety. ABSENT: depression, hallucinations, homidical ideation, suicidal ideation Endocrine: ABSENT: cold intolerance, heat intolerance, polydipsia, polyuria Hematologic/Lymphatic: ABSENT: easy bleeding, easy bruising Physical Exam Vital Signs: Temp Pulse Resp BP Pulse Ox 98.2 F 78 14 182/133 H 97 12/17/16 06:35 12/17/16 12:27 12/17/16 12:27 12/17/16 09:49 12/17/16 12:27 PHYSICAL EXAM: GENERAL: Appears well, no acute distress HEENT: Normocephalic, no scleral icterus, conjunctiva clear, EOEM intact, PERRLA , moist mucous membranes NECK: trachea midline, no thyromegally RESPIRATORY: Clear to auscultation, no wheezes/rhonchi CARDIAC: Slightly tachycardic, regular, no murmur/buzz/rub ABDOMEN: Soft, no distension, no tenderness, no guarding, normal bowel sounds, negative Shields sign RECTAL: deferred : deferred EXTREMITIES: No edema, cyanosis, clubbing MUSCULOSKELETAL: No joint swelling or deformity VASCULAR: normal peripheral pulses NEUROLOGIC: Alert, tremulous, oriented to person/place/time, normal speech, cranial nerves grossly intact, 5/5 strength in all extremities, tactile sensation intact in all extremities SKIN: No rash, no wounds, no worrisome skin lesions PSYCHIATRIC: Anxious Results Laboratory Results: Labs- All tests 24 hr 12/17/16 12/17/16 12/17/16 07:20 07:20 07:20 WBC 13.6 H RBC 4.13 L Hgb 12.1 L Hct 36.5 L MCV 89 MCH 29.3 MCHC 33.1 RDW 18.9 H Plt Count 352 Seg Neutrophils % 85.2 H Lymphocytes % 7.6 L Monocytes % 6.7 Eosinophils % 0.2 Basophils % 0.3 Absolute Neutrophils 11.6 H Absolute Lymphocytes 1.0 Absolute Monocytes 0.9 Absolute Eosinophils 0.0 Absolute Basophils 0.0 VBG pH VBG pCO2 VBG HCO3 VBG Base Excess Sodium 135.9 L Potassium 2.9 L* Chloride 87 L Carbon Dioxide 36 H Anion Gap 13 BUN 11 Creatinine 0.78 Est GFR ( Amer) > 60 Est GFR (Non-Af Amer) > 60 Glucose 117 H Calcium 18.3 H* Magnesium 0.9 L* Total Bilirubin 0.6 Direct Bilirubin 0.4 Indirect Bilirubin Not Reportable Neonat Total Bilirubin Not Reportable AST 108 H ALT 49 Alkaline Phosphatase 156 H Creatine Kinase 70 Troponin I Total Protein 7.5 Albumin 3.5 Lipase 714.8 H Urine Color Urine Appearance Urine pH Ur Specific Sherman Urine Protein Urine Glucose (UA) Urine Ketones Urine Blood Urine Nitrite Urine Bilirubin Urine Urobilinogen Ur Leukocyte Esterase Urine WBC (Auto) Urine RBC (Auto) Urine Mucus (Auto) Urine Ascorbic Acid Salicylates < 1.0 L Urine Opiates Screen Urine Methadone Screen Acetaminophen < 10 L Ur Barbiturates Screen Ur Phencyclidine Scrn Ur Amphetamines Screen U Benzodiazepines Scrn Urine Cocaine Screen U Marijuana (THC) Screen Serum Alcohol 14 12/17/16 12/17/16 12/17/16 07:20 08:06 08:06 WBC RBC Hgb Hct MCV MCH MCHC RDW Plt Count Seg Neutrophils % Lymphocytes % Monocytes % Eosinophils % Basophils % Absolute Neutrophils Absolute Lymphocytes Absolute Monocytes Absolute Eosinophils Absolute Basophils VBG pH VBG pCO2 VBG HCO3 VBG Base Excess Sodium Potassium Chloride Carbon Dioxide Anion Gap BUN Creatinine Est GFR ( Amer) Est GFR (Non-Af Amer) Glucose Calcium Magnesium Total Bilirubin Direct Bilirubin Indirect Bilirubin Neonat Total Bilirubin AST ALT Alkaline Phosphatase Creatine Kinase Troponin I 0.015 Total Protein Albumin Lipase Urine Color YELLOW Urine Appearance SLIGHTLY-CLOUDY Urine pH 7.0 Ur Specific Sherman 1.005 Urine Protein 30 H Urine Glucose (UA) NEGATIVE Urine Ketones NEGATIVE Urine Blood NEGATIVE Urine Nitrite NEGATIVE Urine Bilirubin NEGATIVE Urine Urobilinogen NEGATIVE Ur Leukocyte Esterase TRACE H Urine WBC (Auto) 4 Urine RBC (Auto) 0 Urine Mucus (Auto) RARE Urine Ascorbic Acid NEGATIVE Salicylates Urine Opiates Screen NEGATIVE Urine Methadone Screen NEGATIVE Acetaminophen Ur Barbiturates Screen NEGATIVE Ur Phencyclidine Scrn NEGATIVE Ur Amphetamines Screen NEGATIVE U Benzodiazepines Scrn NEGATIVE Urine Cocaine Screen NEGATIVE U Marijuana (THC) Screen NEGATIVE Serum Alcohol 12/17/16 08:58 WBC RBC Hgb Hct MCV MCH MCHC RDW Plt Count Seg Neutrophils % Lymphocytes % Monocytes % Eosinophils % Basophils % Absolute Neutrophils Absolute Lymphocytes Absolute Monocytes Absolute Eosinophils Absolute Basophils VBG pH 7.52 H VBG pCO2 50.8 VBG HCO3 40.1 H VBG Base Excess 14.9 Sodium Potassium Chloride Carbon Dioxide Anion Gap BUN Creatinine Est GFR ( Amer) Est GFR (Non-Af Amer) Glucose Calcium Magnesium Total Bilirubin Direct Bilirubin Indirect Bilirubin Neonat Total Bilirubin AST ALT Alkaline Phosphatase Creatine Kinase Troponin I Total Protein Albumin Lipase Urine Color Urine Appearance Urine pH Ur Specific Sherman Urine Protein Urine Glucose (UA) Urine Ketones Urine Blood Urine Nitrite Urine Bilirubin Urine Urobilinogen Ur Leukocyte Esterase Urine WBC (Auto) Urine RBC (Auto) Urine Mucus (Auto) Urine Ascorbic Acid Salicylates Urine Opiates Screen Urine Methadone Screen Acetaminophen Ur Barbiturates Screen Ur Phencyclidine Scrn Ur Amphetamines Screen U Benzodiazepines Scrn Urine Cocaine Screen U Marijuana (THC) Screen Serum Alcohol Impressions: Chest X-Ray 12/17/16 08:05 IMPRESSION: No significant interval change. No acute findings. Other findings as noted above Assessment & Plan - Diagnosis (1) Alcohol withdrawal Qualifiers: Complication of substance-induced condition: with delirium Qualified Code(s): F10.231 - Alcohol dependence with withdrawal delirium Is this a current diagnosis for this admission?: YesPlan: Admit patient to monitored bed. As needed IV Ativan. Scheduled oral Valium 10 mg every 8 hours. Thiamine. (2) Alcohol abuse Is this a current diagnosis for this admission?: Yes (3) Hypokalemia Is this a current diagnosis for this admission?: YesPlan: Replace as needed. (4) Hypercalcemia Is this a current diagnosis for this admission?: YesPlan: Administer IV fluids. Repeat labs when volume status repleted. (5) Hypomagnesemia Is this a current diagnosis for this admission?: YesPlan: Replace as needed. (6) Tobacco dependency Is this a current diagnosis for this admission?: Yes - Time Time Spent: Greater than 70 Minutes Anticipated discharge: Home
[2016-12-17] MEDS: CEFTRIAXONE 1 GM/D5W RTU 1 GM/50 ML RTUPB IV SCH (15:28)
[2016-12-17] MEDS: DIAZEPAM 5 MG TABLET PO SCH ×2 (15:29→21:40)
[2016-12-17] MEDS: LORAZEPAM INJ 2 MG/1 ML VIAL IV PRN ×3 (15:30→23:36)
[2016-12-17] MEDS ORDERED: DEXTROSE 50%-WATER 25 GM/50 ML DISP.SYRIN IV PRN ×2 (17:06)
[2016-12-17] MEDS ORDERED: DEXTROSE 40% GEL 15 GM TUBE PO PRN ×2 (17:06)
[2016-12-17] MEDS ORDERED: GLUCAGON,HUMAN RECOMB 1 MG INJ SUBCUT PRN (17:06)
[2016-12-17 17:19] LABS: BLOOD UREA NITROGEN 12 mg/dL (7-20); CHLORIDE 84 mmol/L (98-107); GLUCOSE 137 mg/dL (75-110); MAGNESIUM 1.5 mg/dL (1.6-2.3); POTASSIUM 3.2 mmol/L (3.6-5.0); SODIUM 134.6 mmol/L (137-145)
[2016-12-17] MEDS: POTASSI CL 20 MEQ/D5NS 1L 1,000 ML IV PRN (17:21)
[2016-12-17 17:23] LABS: ANION GAP 11 (5-19)
[2016-12-17] MEDS: THIAMINE HCL 100 MG in NORMAL SALINE 50 ML IV SCH (17:25)
[2016-12-17 17:38] LABS: CALCIUM 17.9 mg/dL (8.4-10.2); CARBON DIOXIDE 40 mmol/L (22-30)
--- NOTE | 2016-12-17 18:49 | EKG REPORT ---
SEVERITY:- BORDERLINE ECG - SINUS RHYTHM VENTRICULAR PREMATURE COMPLEX LOW VOLTAGE IN FRONTAL LEADS BORDERLINE PROLONGED QT INTERVAL : Confirmed by: Emiliano Bush MD 17-Dec-2016 18:48:50
[2016-12-17] MEDS: POTASSI CL 20 MEQ/50 ML RIDER 50 ML IV SCH ×2 (19:06→19:56)
[2016-12-17] MEDS: MAGNESIUM SULFATE/D5W 100 ML IV SCH ×2 (19:55→21:38)
[2016-12-17] MEDS: METOPROLOL TARTRATE PF/INJ 5 MG/5 ML SDV IV PRN (20:12)
[2016-12-17] MEDS: METOPROLOL TARTRATE 50 MG TABLET PO SCH (21:40)
[2016-12-17] MEDS: FAMOTIDINE INJ/PF 20 MG/2 ML SDV IV SCH (21:40)
[2016-12-18] MEDS: POTASSI CL 20 MEQ/D5NS 1L 1,000 ML IV PRN ×2 (04:59→23:21)
[2016-12-18 05:01] LABS: ABSOLUTE BASOPHILS # (AUTO) 0.1 10^3/uL (0.0-0.2); ABSOLUTE EOSINOPHILS # (AUTO) 0.1 10^3/uL (0.0-0.6); ABSOLUTE MONOCYTES (AUTO) 0.9 10^3/uL (0.1-1.4); ABSOLUTE NEUT (AUTO) 10.9 10^3/uL (1.7-8.2); BASOPHILS % (AUTO) 0.5 % (0-2); EOSINOPHILS % (AUTO) 0.8 % (0-6); HEMATOCRIT 35.4 % (37.9-51.0); HEMOGLOBIN 11.4 g/dL (13.5-17.0); HGB HCT DIFFERENCE -1.2; LYMPHOCYTES % (AUTO) 7.8 % (13-45); MEAN CORPUSCULAR HEMOGLOBIN 28.9 pg (27.0-33.4); MEAN CORPUSCULAR HGB CONC 32.3 g/dL (32.0-36.0); MEAN CORPUSCULAR VOLUME 90 fl (80-97); MONOCYTES % (AUTO) 6.6 % (3-13); RED BLOOD COUNT 3.95 10^6/uL (4.35-5.55); RED CELL DISTRIBUTION WIDTH 18.7 % (11.5-14.0); SEGMENTED NEUTROPHILS % (AUTO) 84.3 % (42-78)
[2016-12-18] MEDS: DIAZEPAM 5 MG TABLET PO SCH ×3 (05:01→21:55)
[2016-12-18 05:26] LABS: BLOOD UREA NITROGEN 11 mg/dL (7-20); CHLORIDE 90 mmol/L (98-107); CREATININE RESULT 0.87 mg/dL (0.52-1.25); GLUCOSE 131 mg/dL (75-110); LIPASE 606.7 U/L (23-300); MAGNESIUM 1.7 mg/dL (1.6-2.3); POTASSIUM 3.1 mmol/L (3.6-5.0); SODIUM 137.5 mmol/L (137-145)
[2016-12-18 05:38] LABS: ANION GAP 6 (5-19)
[2016-12-18 05:39] LABS: CALCIUM 15.2 mg/dL (8.4-10.2); CARBON DIOXIDE 42 mmol/L (22-30)
[2016-12-18] MEDS ORDERED: POTASSI CL 20 MEQ/50 ML RIDER 50 ML IV SCH (07:15)
[2016-12-18] MEDS ORDERED: (PENDING PHARMACY ID) (Sertraline Hcl [Zoloft] 200 MG) PO SCH (10:00)
[2016-12-18] MEDS: SERTRALINE HCL 50 MG TABLET PO SCH (11:33)
[2016-12-18] MEDS: ENOXAPARIN SODIUM INJ 40 MG/0.4 ML DISP.SYRIN SUBCUT SCH (11:33)
[2016-12-18] MEDS: FAMOTIDINE INJ/PF 20 MG/2 ML SDV IV SCH ×2 (11:34→21:53)
[2016-12-18] MEDS: METOPROLOL TARTRATE 50 MG TABLET PO SCH ×2 (11:34→21:55)
[2016-12-18] MEDS: THIAMINE HCL 100 MG in NORMAL SALINE 50 ML IV SCH (14:28)
[2016-12-18] MEDS: CEFTRIAXONE 1 GM/D5W RTU 1 GM/50 ML RTUPB IV SCH (14:34)
--- NOTE | 2016-12-18 15:21 | PDOC PROGRESS REPORT ---
Subjective Progress Note for:: 12/18/16 Subjective:: Patient remains intermittently agitated and confused until he is medicated with IV Ativan at which time he becomes sedate. I cannot obtain reasonable review of systems as he is in acute alcohol withdrawal. Physical Exam Vital Signs: Temp Pulse Resp BP Pulse Ox 97.4 F 73 18 144/98 H 91 L 12/18/16 14:00 12/18/16 14:32 12/18/16 14:32 12/18/16 14:00 12/18/16 14:32 Intake & Output 12/17/16 12/18/16 12/19/16 06:59 06:59 06:59 Intake Total 1892 Output Total 750 Balance 1142 Weight 57.3 kg GENERAL: No acute distress HEENT: Conjunctiva clear, nonicteric, moist mucous membranes, no JVD, midline trachea RESPIRATORY: Clear to auscultation bilaterally, no wheezes, no rhonchi CARDIAC: Regular rate and rhythm, no murmurs/gallops/rubs ABDOMEN: Soft, nondistended, nontender, positive bowel sounds, no rebound, no guarding EXTREMETIES: No edema, cyanosis, clubbing NEUROLOGIC: Sedated, disoriented, CN's grossly intact, no focal deficits SKIN: No rash, wounds Results Laboratory Results: 12/18/16 04:37 12/18/16 04:37 12/17/16 12/17/16 12/18/16 15:07 16:30 04:37 WBC 13.0 H RBC 3.95 L Hgb 11.4 L Hct 35.4 L MCV 90 MCH 28.9 MCHC 32.3 RDW 18.7 H Plt Count 299 Seg Neutrophils % 84.3 H Lymphocytes % 7.8 L Monocytes % 6.6 Eosinophils % 0.8 Basophils % 0.5 Absolute Neutrophils 10.9 H Absolute Lymphocytes 1.0 Absolute Monocytes 0.9 Absolute Eosinophils 0.1 Absolute Basophils 0.1 Sodium Cancelled 134.6 L Potassium Cancelled 3.2 L Chloride Cancelled 84 L Carbon Dioxide Cancelled 40 H* Anion Gap Cancelled 11 BUN Cancelled 12 Creatinine Cancelled 0.90 Est GFR ( Amer) Cancelled > 60 Est GFR (Non-Af Amer) Cancelled > 60 Glucose Cancelled 137 H Calcium Cancelled 17.9 H* Magnesium Cancelled 1.5 L Lipase 12/18/16 04:37 WBC RBC Hgb Hct MCV MCH MCHC RDW Plt Count Seg Neutrophils % Lymphocytes % Monocytes % Eosinophils % Basophils % Absolute Neutrophils Absolute Lymphocytes Absolute Monocytes Absolute Eosinophils Absolute Basophils Sodium 137.5 Potassium 3.1 L Chloride 90 L Carbon Dioxide 42 H* Anion Gap 6 BUN 11 Creatinine 0.87 Est GFR ( Amer) > 60 Est GFR (Non-Af Amer) > 60 Glucose 131 H Calcium 15.2 H* Magnesium 1.7 Lipase 606.7 H Impressions: Chest X-Ray 12/17/16 08:05 IMPRESSION: No significant interval change. No acute findings. Other findings as noted above Assessment & Plan - Diagnosis (1) Alcohol withdrawal Qualifiers: Complication of substance-induced condition: with delirium Qualified Code(s): F10.231 - Alcohol dependence with withdrawal delirium Is this a current diagnosis for this admission?: YesPlan: As needed IV Ativan. Scheduled oral Valium 10 mg every 8 hours. Thiamine. (2) Alcohol abuse Is this a current diagnosis for this admission?: Yes (3) Hypokalemia Is this a current diagnosis for this admission?: YesPlan: Replace as needed. (4) Hypercalcemia Is this a current diagnosis for this admission?: YesPlan: Administer IV fluids. Check PTH level and serum protein electrophoresis. Calcium slowly improving with IV fluids. (5) Hypomagnesemia Is this a current diagnosis for this admission?: YesPlan: Replace as needed. (6) Tobacco dependency Is this a current diagnosis for this admission?: Yes - Time Time Spent with patient: 35 or more minutes
[2016-12-18] MEDS: LORAZEPAM INJ 2 MG/1 ML VIAL IV PRN ×2 (16:23→20:43)
[2016-12-18] MEDS: METOPROLOL TARTRATE PF/INJ 5 MG/5 ML SDV IV PRN (20:37)
[2016-12-19] MEDS: DIAZEPAM 5 MG TABLET PO SCH ×3 (05:18→22:57)
[2016-12-19 05:41] LABS: ABSOLUTE BASOPHILS # (AUTO) 0.1 10^3/uL (0.0-0.2); ABSOLUTE EOSINOPHILS # (AUTO) 0.2 10^3/uL (0.0-0.6); ABSOLUTE LYMPHOCYTES (AUTO) 1.3 10^3/uL (0.5-4.7); ABSOLUTE MONOCYTES (AUTO) 0.8 10^3/uL (0.1-1.4); ABSOLUTE NEUT (AUTO) 10.9 10^3/uL (1.7-8.2); BASOPHILS % (AUTO) 0.4 % (0-2); EOSINOPHILS % (AUTO) 1.4 % (0-6); HEMATOCRIT 37.1 % (37.9-51.0); HEMOGLOBIN 11.8 g/dL (13.5-17.0); HGB HCT DIFFERENCE -1.7; LYMPHOCYTES % (AUTO) 9.5 % (13-45); MEAN CORPUSCULAR HEMOGLOBIN 29.1 pg (27.0-33.4); MEAN CORPUSCULAR HGB CONC 31.9 g/dL (32.0-36.0); MEAN CORPUSCULAR VOLUME 91 fl (80-97); MONOCYTES % (AUTO) 6.2 % (3-13); RED BLOOD COUNT 4.07 10^6/uL (4.35-5.55); SEGMENTED NEUTROPHILS % (AUTO) 82.5 % (42-78); WHITE BLOOD COUNT 13.2 10^3/uL (4.0-10.5)
[2016-12-19 05:59] LABS: ANION GAP 10 (5-19); BLOOD UREA NITROGEN 15 mg/dL (7-20); CARBON DIOXIDE 34 mmol/L (22-30); CHLORIDE 97 mmol/L (98-107); CREATININE RESULT 0.93 mg/dL (0.52-1.25); GLUCOSE 96 mg/dL (75-110); MAGNESIUM 1.3 mg/dL (1.6-2.3); POTASSIUM 3.7 mmol/L (3.6-5.0); SODIUM 141.4 mmol/L (137-145)
[2016-12-19 06:07] LABS: CALCIUM 12.7 mg/dL (8.4-10.2)
[2016-12-19] MEDS: POTASSI CL 20 MEQ/D5NS 1L 1,000 ML IV PRN ×2 (07:13→17:58)
[2016-12-19] MEDS: SERTRALINE HCL 50 MG TABLET PO SCH (10:27)
[2016-12-19] MEDS: METOPROLOL TARTRATE 50 MG TABLET PO SCH ×2 (10:28→22:58)
[2016-12-19] MEDS: ENOXAPARIN SODIUM INJ 40 MG/0.4 ML DISP.SYRIN SUBCUT SCH (10:29)
[2016-12-19] MEDS: LORAZEPAM INJ 2 MG/1 ML VIAL IV PRN ×2 (10:29→23:06)
[2016-12-19] MEDS: FAMOTIDINE INJ/PF 20 MG/2 ML SDV IV SCH ×2 (10:29→22:57)
--- NOTE | 2016-12-19 11:14 | PDOC PROGRESS REPORT ---
Subjective Progress Note for:: 12/19/16 Subjective:: Patient remains intermittently agitated requiring IV Ativan at times. He received a dose prior to my evaluation and is pretty sedated when I see him. He cannot give me adequate history or review of systems. Physical Exam Vital Signs: Temp Pulse Resp BP Pulse Ox 97.5 F 71 20 158/92 H 97 12/19/16 07:56 12/19/16 07:56 12/19/16 07:56 12/19/16 07:56 12/19/16 07:56 Intake & Output 12/18/16 12/19/16 12/20/16 06:59 06:59 06:59 Intake Total 1892 1178 Output Total 750 Balance 1142 1178 Weight 57.3 kg 61.8 kg GENERAL: No acute distress HEENT: Conjunctiva clear, nonicteric, moist mucous membranes, no JVD, midline trachea RESPIRATORY: Clear to auscultation bilaterally, no wheezes, no rhonchi CARDIAC: Regular rate and rhythm, no murmurs/gallops/rubs ABDOMEN: Soft, nondistended, nontender, positive bowel sounds, no rebound, no guarding EXTREMETIES: No edema, cyanosis, clubbing NEUROLOGIC: Sedated, disoriented, CN's grossly intact, no focal deficits SKIN: No rash, wounds Results Laboratory Results: 12/19/16 04:57 12/19/16 04:57 12/19/16 12/19/16 04:57 04:57 WBC 13.2 H RBC 4.07 L Hgb 11.8 L Hct 37.1 L MCV 91 MCH 29.1 MCHC 31.9 L RDW 19.0 H Plt Count 279 Seg Neutrophils % 82.5 H Lymphocytes % 9.5 L Monocytes % 6.2 Eosinophils % 1.4 Basophils % 0.4 Absolute Neutrophils 10.9 H Absolute Lymphocytes 1.3 Absolute Monocytes 0.8 Absolute Eosinophils 0.2 Absolute Basophils 0.1 Sodium 141.4 Potassium 3.7 Chloride 97 L Carbon Dioxide 34 H Anion Gap 10 BUN 15 Creatinine 0.93 Est GFR ( Amer) > 60 Est GFR (Non-Af Amer) > 60 Glucose 96 Calcium 12.7 H* Magnesium 1.3 L Impressions: Chest X-Ray 12/17/16 08:05 IMPRESSION: No significant interval change. No acute findings. Other findings as noted above Assessment & Plan - Diagnosis (1) Alcohol withdrawal Qualifiers: Complication of substance-induced condition: with delirium Qualified Code(s): F10.231 - Alcohol dependence with withdrawal delirium Is this a current diagnosis for this admission?: YesPlan: As needed IV Ativan. Scheduled oral Valium 10 mg every 8 hours. Thiamine. (2) Alcohol abuse Is this a current diagnosis for this admission?: Yes (3) Hypercalcemia Is this a current diagnosis for this admission?: YesPlan: Administer IV fluids. Check PTH level and serum protein electrophoresis. Calcium slowly improving with IV fluids. (4) Hypomagnesemia Is this a current diagnosis for this admission?: YesPlan: Replace as needed. (5) Tobacco dependency Is this a current diagnosis for this admission?: Yes (6) Acute pancreatitis Is this a current diagnosis for this admission?: YesPlan: Secondary to alcohol abuse. Continue n.p.o. status. Continue IV fluids. Repeat lipase in the morning. (7) Acute hypokalemia Is this a current diagnosis for this admission?: YesPlan: Corrected. - Time Time Spent with patient: 35 or more minutes
[2016-12-19] MEDS: METOPROLOL TARTRATE PF/INJ 5 MG/5 ML SDV IV PRN ×2 (11:27→22:57)
[2016-12-19] MEDS: MAGNESIUM SULFATE/D5W 1 GM/100 ML RTUPB IV SCH ×2 (11:49→13:26)
[2016-12-19] MEDS: THIAMINE HCL 100 MG in NORMAL SALINE 50 ML IV SCH (13:26)
[2016-12-19] MEDS: CEFTRIAXONE 1 GM/D5W RTU 1 GM/50 ML RTUPB IV SCH (13:27)
--- NOTE | 2016-12-20 02:52 | RADIOLOGY REPORT (SQ) ---
EXAM DESCRIPTION: CT HEAD WITHOUT COMPLETED DATE/TIME: 12/20/2016 2:15 am REASON FOR STUDY: ams COMPARISON: None. TECHNIQUE: Axial images acquired through the brain without intravenous contrast. Images reviewed wi th bone, brain and subdural windows. Images stored on PACS. All CT scanners at this facility use dose modulation, iterative reconstruction, and/or weight based d osing when appropriate to reduce radiation dose to as low as reasonably achievable (ALARA). [facility]: Dose Right [facility]: CareDose [facility]: Dose Right [facility]: Teradose 4D [facility]: Smart Oco RADIATION DOSE: Up-to-date CT equipment and radiation dose reduction techniques were employed. CTDIv ol: 64.6 mGy. DLP: 1267 mGy-cm.mGy. LIMITATIONS: Motion artifact. Asymmetric patient positioning in the CT scanner. FINDINGS: There is motion artifact. VENTRICLES: Prominent. CEREBRUM: No mass effect. No hemorrhage. No midline shift. The santiago-white matter differentiation i s preserved. No evidence for acute territorial infarction. CEREBELLUM: No hemorrhage. No alteration of density. No evidence for acute infarction. EXTRAAXIAL SPACES: Age-related involutional change. No fluid collections. ORBITS AND GLOBE: Symmetrical contour of the globes. CALVARIUM: No depressed fracture. PARANASAL SINUSES: No air-fluid level. SOFT TISSUES: No hematoma. IMPRESSION: Study degraded by motion artifact. No acute intracranial hemorrhage or acute territoria l infarct. Cerebral involutional changes. TECHNICAL DOCUMENTATION: JOB ID: [id number] [facility] Quality ID # [id number]: Final reports with documentation of one or more dose reduction techniques (e.g., Au tomated exposure control, adjustment of the mA and/or kV according to patient size, use of iterative reconstruction technique) 2010 [employer]- All Rights Reserved
[2016-12-20] MEDS: LORAZEPAM INJ 2 MG/1 ML VIAL IV PRN (03:35)
[2016-12-20] MEDS: METOPROLOL TARTRATE PF/INJ 5 MG/5 ML SDV IV PRN ×2 (04:30→21:25)
[2016-12-20 06:08] LABS: ABSOLUTE BASOPHILS # (AUTO) 0.2 10^3/uL (0.0-0.2); ABSOLUTE EOSINOPHILS # (AUTO) 0.4 10^3/uL (0.0-0.6); ABSOLUTE LYMPHOCYTES (AUTO) 1.4 10^3/uL (0.5-4.7); ABSOLUTE MONOCYTES (AUTO) 0.9 10^3/uL (0.1-1.4); ABSOLUTE NEUT (AUTO) 9.9 10^3/uL (1.7-8.2); BASOPHILS % (AUTO) 1.2 % (0-2); EOSINOPHILS % (AUTO) 2.9 % (0-6); HEMATOCRIT 34.4 % (37.9-51.0); HEMOGLOBIN 11.1 g/dL (13.5-17.0); HGB HCT DIFFERENCE -1.1; LYMPHOCYTES % (AUTO) 10.9 % (13-45); MEAN CORPUSCULAR HEMOGLOBIN 29.1 pg (27.0-33.4); MEAN CORPUSCULAR HGB CONC 32.1 g/dL (32.0-36.0); MEAN CORPUSCULAR VOLUME 91 fl (80-97); MONOCYTES % (AUTO) 7.3 % (3-13); RED CELL DISTRIBUTION WIDTH 18.8 % (11.5-14.0); SEGMENTED NEUTROPHILS % (AUTO) 77.7 % (42-78); WHITE BLOOD COUNT 12.7 10^3/uL (4.0-10.5)
[2016-12-20 06:19] LABS: ANION GAP 6 (5-19); BLOOD UREA NITROGEN 14 mg/dL (7-20); CALCIUM 10.9 mg/dL (8.4-10.2); CARBON DIOXIDE 29 mmol/L (22-30); CHLORIDE 106 mmol/L (98-107); CREATININE RESULT 0.86 mg/dL (0.52-1.25); GLUCOSE 115 mg/dL (75-110); LIPASE 416.9 U/L (23-300); MAGNESIUM 1.4 mg/dL (1.6-2.3); POTASSIUM 3.9 mmol/L (3.6-5.0)
[2016-12-20] MEDS: DIAZEPAM 5 MG TABLET PO SCH ×3 (06:42→21:25)
[2016-12-20] MEDS: MAGNESIUM SULFATE/D5W 100 ML IV SCH ×2 (07:38→09:04)
[2016-12-20] MEDS: FAMOTIDINE INJ/PF 20 MG/2 ML SDV IV SCH ×2 (09:08→21:25)
[2016-12-20] MEDS: ENOXAPARIN SODIUM INJ 40 MG/0.4 ML DISP.SYRIN SUBCUT SCH (09:09)
[2016-12-20] MEDS: SERTRALINE HCL 50 MG TABLET PO SCH (09:10)
[2016-12-20] MEDS: METOPROLOL TARTRATE 50 MG TABLET PO SCH ×2 (09:11→22:49)
[2016-12-20] MEDS ORDERED: AMLODIPINE BESYLATE 5 MG TABLET PO SCH (10:00)
--- NOTE | 2016-12-20 10:05 | PDOC PROGRESS REPORT ---
Subjective Progress Note for:: 12/20/16 Subjective:: Patient remains in overt alcohol withdrawal. At this time he is stating that he needs a car battery because his car will not start. When I asked him where he is he states "[place]". He denies pain or shortness of breath. Physical Exam Vital Signs: Temp Pulse Resp BP Pulse Ox 97.5 F 72 18 161/111 H 98 12/20/16 07:11 12/20/16 07:11 12/20/16 07:11 12/20/16 07:11 12/20/16 07:11 Intake & Output 12/19/16 12/20/16 12/21/16 06:59 06:59 06:59 Intake Total 1178 1375 Balance 1178 1375 Weight 61.8 kg 72.2 kg GENERAL: No acute distress HEENT: Conjunctiva clear, nonicteric, moist mucous membranes, no JVD, midline trachea RESPIRATORY: Clear to auscultation bilaterally, no wheezes, no rhonchi CARDIAC: Regular rate and rhythm, no murmurs/gallops/rubs ABDOMEN: Soft, nondistended, nontender, positive bowel sounds, no rebound, no guarding EXTREMETIES: No edema, cyanosis, clubbing NEUROLOGIC: Alert, disoriented, CN's grossly intact, no focal deficits SKIN: No rash, wounds Results Laboratory Results: 12/20/16 05:54 12/20/16 05:54 12/20/16 12/20/16 05:54 05:54 WBC 12.7 H RBC 3.80 L Hgb 11.1 L Hct 34.4 L MCV 91 MCH 29.1 MCHC 32.1 RDW 18.8 H Plt Count 277 Seg Neutrophils % 77.7 Lymphocytes % 10.9 L Monocytes % 7.3 Eosinophils % 2.9 Basophils % 1.2 Absolute Neutrophils 9.9 H Absolute Lymphocytes 1.4 Absolute Monocytes 0.9 Absolute Eosinophils 0.4 Absolute Basophils 0.2 Sodium 141.0 Potassium 3.9 Chloride 106 Carbon Dioxide 29 Anion Gap 6 BUN 14 Creatinine 0.86 Est GFR ( Amer) > 60 Est GFR (Non-Af Amer) > 60 Glucose 115 H Calcium 10.9 H Magnesium 1.4 L Lipase 416.9 H Impressions: Chest X-Ray 12/17/16 08:05 IMPRESSION: No significant interval change. No acute findings. Other findings as noted above Head CT 12/20/16 00:00 IMPRESSION: Study degraded by motion artifact. No acute intracranial hemorrhage or acute territorial infarct. Cerebral involutional changes. Assessment & Plan - Diagnosis (1) Alcohol withdrawal Qualifiers: Complication of substance-induced condition: with delirium Qualified Code(s): F10.231 - Alcohol dependence with withdrawal delirium Is this a current diagnosis for this admission?: YesPlan: As needed IV Ativan. Scheduled oral Valium 10 mg every 12 hours. Thiamine. Continue n.p.o. diet for now as patient is at high aspiration risk (2) Acute pancreatitis Is this a current diagnosis for this admission?: YesPlan: Secondary to alcohol abuse. Continue n.p.o. status. Continue IV fluids. Repeat lipase in the morning. (3) Alcohol abuse Is this a current diagnosis for this admission?: Yes (4) Hypercalcemia Is this a current diagnosis for this admission?: YesPlan: Administer IV fluids. Check PTH level and serum protein electrophoresis. Calcium slowly improving with IV fluids. (5) Hypomagnesemia Is this a current diagnosis for this admission?: YesPlan: Replace as needed. (6) Tobacco dependency Is this a current diagnosis for this admission?: Yes (7) Acute hypokalemia Is this a current diagnosis for this admission?: Yes - Time Time Spent with patient: 25-34 minutes
[2016-12-20] MEDS: POTASSI CL 20 MEQ/D5NS 1L 1,000 ML IV PRN (10:57)
[2016-12-20] MEDS: THIAMINE HCL 100 MG in NORMAL SALINE 50 ML IV SCH (14:34)
[2016-12-20] MEDS: CEFTRIAXONE 1 GM/D5W RTU 1 GM/50 ML RTUPB IV SCH (14:34)
[2016-12-20] MEDS ORDERED: LIDOCAINE 1% INJ-PF (10 MG/ML) 30 ML SDV ONE (19:20)
--- NOTE | 2016-12-20 20:14 | Progress Note ---
Provider Note Provider Note: December 20, 2016: Contacted by floor nursing staff early this morning concerning patient seemingly unable or unwilling to turn his head from a right-sided deviation. Went to the patient's bedside at 1:25 AM. Patient was asleep with head turned toward the right. He was awoken, and was able to turn his head in both directions without undue difficulty. Moved upper extremities grossly normally, with handgrip, biceps and triceps function 5/5 and symmetric. Dorsiflexion and plantarflexion of feet 5/5 and symmetric. Absent Babinski. Patellar reflexes absent. Only mumbled incoherently when asked basic questions, so could not adequately evaluate light touch sensation. No rigidity. No ankle clonus. No nystagmus.
[2016-12-20] MEDS ORDERED: LORAZEPAM INJ 2 MG/1 ML VIAL ONE (20:18)
[2016-12-20] MEDS ORDERED: LORAZEPAM INJ 2 MG/1 ML VIAL IM ONE (20:30)
--- NOTE | 2016-12-20 21:24 | RADIOLOGY REPORT (SQ) ---
EXAM DESCRIPTION: CHEST SINGLE VIEW COMPLETED DATE/TIME: 12/20/2016 9:15 pm REASON FOR STUDY: central line placement confirmation COMPARISON: 12/17/2016. NUMBER OF VIEWS: One view. TECHNIQUE: Single frontal radiographic view of the chest acquired. LIMITATIONS: None. FINDINGS: LUNGS AND PLEURA: Right apical density looks more pronounced compared to prior, likely due to considerable differences in technique. No pneumothorax. MEDIASTINUM AND HILAR STRUCTURES: No masses. Contour normal. HEART AND VASCULAR STRUCTURES: Heart normal in size. Normal vasculature. BONES: No acute findings. HARDWARE: Right central line with tip to the cavoatrial junction, appropriate. OTHER: No other significant finding. IMPRESSION: No pneumothorax post central line placement. Line is appropriate. TECHNICAL DOCUMENTATION: JOB ID: [id number] [email or web address] All Rights Reserved
--- NOTE | 2016-12-20 23:23 | OPERATIVE REPORT E ---
Operative Report NAME: HALLE ROSARIO : 1960 AGE: 56Y DATE OF SURGERY: 12/20/2016 ROOM: 325 PREOPERATIVE DIAGNOSES: Poor veins for IV access and alcohol intoxication. POSTOPERATIVE DIAGNOSES: Poor veins for IV access and alcohol intoxication. PROCEDURE: Placement of right subclavian triple lumen catheter. SURGEON: JOSE HALL M.D. ANESTHESIA: Local and sedation. DESCRIPTION OF PROCEDURE: The patient was given 2 mg of IM Ativan, enough for about 20 minutes. When the patient has calmed down, patient was placed in a Trendelenburg position and the right upper chest and neck were then prepped and draped in the usual sterile fashion. Local anesthesia infiltrated along the right infraclavicular area and the right subclavian vein percutaneously punctured and guidewire passed through the needle into the superior vena cava. The needle was removed and the puncture site dilated. A triple-lumen catheter was then placed through the guidewire, inserting up to about 16 cm. The three ports were then irrigated and easily aspirated venous blood and irrigated with saline afterwards. The catheter was then anchored to the skin with 3-0 silk and a Biopatch placed at the incision site. A transparent dressing was then placed on the catheter. Chest x-ray will be performed for placement. DICTATING PHYSICIAN: JOSE HALL M.D. [id number] PHY#: [id number] ID: [id number] JOB#: [id number] ACCT: [id number] cc:JOSE HALL M.D. >
[2016-12-20] MEDS ORDERED: NORMAL SALINE 10 ML SDV (AFTER EACH USE) IV PRN (23:42)
[2016-12-21] MEDS: LORAZEPAM INJ 2 MG/1 ML VIAL IV PRN (00:24)
[2016-12-21 04:52] LABS: ABSOLUTE BASOPHILS # (AUTO) 0.1 10^3/uL (0.0-0.2); ABSOLUTE EOSINOPHILS # (AUTO) 0.3 10^3/uL (0.0-0.6); ABSOLUTE LYMPHOCYTES (AUTO) 1.4 10^3/uL (0.5-4.7); ABSOLUTE MONOCYTES (AUTO) 0.8 10^3/uL (0.1-1.4); ABSOLUTE NEUT (AUTO) 6.7 10^3/uL (1.7-8.2); BASOPHILS % (AUTO) 0.7 % (0-2); EOSINOPHILS % (AUTO) 3.5 % (0-6); HEMOGLOBIN 10.7 g/dL (13.5-17.0); HGB HCT DIFFERENCE -0.9; LYMPHOCYTES % (AUTO) 15.3 % (13-45); MEAN CORPUSCULAR HEMOGLOBIN 29.4 pg (27.0-33.4); MEAN CORPUSCULAR HGB CONC 32.3 g/dL (32.0-36.0); MEAN CORPUSCULAR VOLUME 91 fl (80-97); MONOCYTES % (AUTO) 8.3 % (3-13); RED BLOOD COUNT 3.63 10^6/uL (4.35-5.55); RED CELL DISTRIBUTION WIDTH 19.2 % (11.5-14.0); SEGMENTED NEUTROPHILS % (AUTO) 72.2 % (42-78); WHITE BLOOD COUNT 9.3 10^3/uL (4.0-10.5)
[2016-12-21 05:05] LABS: ANION GAP 9 (5-19); BLOOD UREA NITROGEN 13 mg/dL (7-20); CALCIUM 9.4 mg/dL (8.4-10.2); CARBON DIOXIDE 26 mmol/L (22-30); CHLORIDE 107 mmol/L (98-107); CREATININE RESULT 0.83 mg/dL (0.52-1.25); GLUCOSE 111 mg/dL (75-110); MAGNESIUM 1.4 mg/dL (1.6-2.3); POTASSIUM 3.7 mmol/L (3.6-5.0); SODIUM 142.4 mmol/L (137-145)
[2016-12-21] MEDS: MAGNESIUM SULFATE/D5W 1 GM/100 ML RTUPB IV SCH ×2 (07:35→11:34)
[2016-12-21] MEDS: POTASSI CL 20 MEQ/D5NS 1L 1,000 ML IV PRN (07:36)
[2016-12-21] MEDS ORDERED: POTASSI CL 20 MEQ/D5NS 1L 1,000 ML IV PRN (09:12)
--- NOTE | 2016-12-21 09:17 | PDOC PROGRESS REPORT ---
Subjective Progress Note for:: 12/21/16 Subjective:: Patient is alert this morning and aware of who he is and where he is. He is able to respond to questions appropriately today. Patient denies fever, chills, headache, new focal weakness, chest pain, shortness of breath, abdominal pain, nausea, vomiting, diarrhea, constipation. Physical Exam Vital Signs: Temp Pulse Resp BP Pulse Ox 97.6 F 74 20 155/110 H 100 12/21/16 07:19 12/21/16 07:19 12/21/16 07:19 12/21/16 07:19 12/21/16 07:19 Intake & Output 12/20/16 12/21/16 12/22/16 06:59 06:59 06:59 Intake Total 1375 1300 Balance 1375 1300 Weight 72.2 kg 73.3 kg GENERAL: No acute distress HEENT: Conjunctiva clear, nonicteric, moist mucous membranes, no JVD, midline trachea RESPIRATORY: Clear to auscultation bilaterally, no wheezes, no rhonchi CARDIAC: Regular rate and rhythm, no murmurs/gallops/rubs ABDOMEN: Soft, nondistended, nontender, positive bowel sounds, no rebound, no guarding EXTREMETIES: No edema, cyanosis, clubbing NEUROLOGIC: Alert, oriented to person/place/time, CN's grossly intact, no focal deficits SKIN: No rash, wounds PSYCH: Normal mood, normal affect Results Laboratory Results: 12/21/16 04:20 12/21/16 04:20 12/21/16 12/21/16 04:20 04:20 WBC 9.3 RBC 3.63 L Hgb 10.7 L Hct 33.0 L MCV 91 MCH 29.4 MCHC 32.3 RDW 19.2 H Plt Count 295 Seg Neutrophils % 72.2 Lymphocytes % 15.3 Monocytes % 8.3 Eosinophils % 3.5 Basophils % 0.7 Absolute Neutrophils 6.7 Absolute Lymphocytes 1.4 Absolute Monocytes 0.8 Absolute Eosinophils 0.3 Absolute Basophils 0.1 Sodium 142.4 Potassium 3.7 Chloride 107 Carbon Dioxide 26 Anion Gap 9 BUN 13 Creatinine 0.83 Est GFR ( Amer) > 60 Est GFR (Non-Af Amer) > 60 Glucose 111 H Calcium 9.4 Magnesium 1.4 L Impressions: Head CT 12/20/16 00:00 IMPRESSION: Study degraded by motion artifact. No acute intracranial hemorrhage or acute territorial infarct. Cerebral involutional changes. Chest X-Ray 12/20/16 20:44 IMPRESSION: No pneumothorax post central line placement. Line is appropriate. Assessment & Plan - Diagnosis (1) Alcohol withdrawal Qualifiers: Complication of substance-induced condition: with delirium Qualified Code(s): F10.231 - Alcohol dependence with withdrawal delirium Is this a current diagnosis for this admission?: YesPlan: As needed IV Ativan. Scheduled oral Valium 10 mg every 12 hours. Thiamine. Start oral intake and decrease IV fluids. (2) Acute pancreatitis Is this a current diagnosis for this admission?: YesPlan: Secondary to alcohol abuse. Start full liquid diet. Decrease IV fluid rate. Repeat lipase in the morning. (3) Alcohol abuse Is this a current diagnosis for this admission?: Yes (4) Hypercalcemia Is this a current diagnosis for this admission?: YesPlan: Corrected with IV fluid. PTH level and serum protein electrophoresis pending. (5) Hypomagnesemia Is this a current diagnosis for this admission?: YesPlan: Replace as needed. (6) Tobacco dependency Is this a current diagnosis for this admission?: Yes (7) Acute hypokalemia Is this a current diagnosis for this admission?: YesPlan: Corrected. (8) Hypertension Qualifiers: Hypertension type: essential hypertension Qualified Code(s): I10 - Essential (primary) hypertension Is this a current diagnosis for this admission?: YesPlan: Increase Norvasc to 10 mg daily. Metoprolol 50 mg twice daily. - Time Time Spent with patient: 25-34 minutes
[2016-12-21] MEDS: ENOXAPARIN SODIUM INJ 40 MG/0.4 ML DISP.SYRIN SUBCUT SCH (10:45)
[2016-12-21] MEDS: FAMOTIDINE INJ/PF 20 MG/2 ML SDV IV SCH ×2 (10:45→21:11)
[2016-12-21] MEDS: SERTRALINE HCL 50 MG TABLET PO SCH (10:46)
[2016-12-21] MEDS: DIAZEPAM 5 MG TABLET PO SCH ×2 (10:46→21:11)
[2016-12-21] MEDS: AMLODIPINE BESYLATE 10 MG TABLET PO SCH (10:46)
[2016-12-21] MEDS: METOPROLOL TARTRATE 50 MG TABLET PO SCH ×2 (10:48→21:11)
[2016-12-21] MEDS: NORMAL SALINE 10 ML SDV (SCHEDULED) IV SCH ×2 (10:50→21:11)
[2016-12-21] MEDS: CEFTRIAXONE 1 GM/D5W RTU 1 GM/50 ML RTUPB IV SCH (13:30)
[2016-12-21] MEDS: THIAMINE HCL 100 MG in NORMAL SALINE 50 ML IV SCH (14:37)
[2016-12-21 15:37] LABS: A/G RATIO 0.7 (0.7-1.7); ALBUMIN 2 3.1 g/dL (2.9-4.4); ALPHA-1-GLOBULIN 2 0.4 g/dL (0.0-0.4); GAMMA GLOBULIN 1.9 g/dL (0.4-1.8); PROTEIN TOTAL SERUM 7.4 g/dL (6.0-8.5)
[2016-12-22 06:04] LABS: ABSOLUTE BASOPHILS # (AUTO) 0.1 10^3/uL (0.0-0.2); ABSOLUTE EOSINOPHILS # (AUTO) 0.3 10^3/uL (0.0-0.6); ABSOLUTE LYMPHOCYTES (AUTO) 1.2 10^3/uL (0.5-4.7); ABSOLUTE MONOCYTES (AUTO) 0.9 10^3/uL (0.1-1.4); ABSOLUTE NEUT (AUTO) 7.4 10^3/uL (1.7-8.2); BASOPHILS % (AUTO) 0.6 % (0-2); EOSINOPHILS % (AUTO) 2.8 % (0-6); HEMATOCRIT 32.1 % (37.9-51.0); HEMOGLOBIN 10.3 g/dL (13.5-17.0); HGB HCT DIFFERENCE -1.2; LYMPHOCYTES % (AUTO) 12.4 % (13-45); MEAN CORPUSCULAR HEMOGLOBIN 29.6 pg (27.0-33.4); MEAN CORPUSCULAR VOLUME 93 fl (80-97); MONOCYTES % (AUTO) 9.5 % (3-13); RED BLOOD COUNT 3.47 10^6/uL (4.35-5.55); RED CELL DISTRIBUTION WIDTH 19.1 % (11.5-14.0); SEGMENTED NEUTROPHILS % (AUTO) 74.7 % (42-78); WHITE BLOOD COUNT 9.9 10^3/uL (4.0-10.5)
[2016-12-22 06:26] LABS: ANION GAP 8 (5-19); BLOOD UREA NITROGEN 14 mg/dL (7-20); CALCIUM 8.3 mg/dL (8.4-10.2); CARBON DIOXIDE 25 mmol/L (22-30); CHLORIDE 107 mmol/L (98-107); CREATININE RESULT 0.73 mg/dL (0.52-1.25); GLUCOSE 84 mg/dL (75-110); LIPASE 444.7 U/L (23-300); MAGNESIUM 1.5 mg/dL (1.6-2.3); POTASSIUM 3.8 mmol/L (3.6-5.0); SODIUM 139.8 mmol/L (137-145)
[2016-12-22] MEDS: ENOXAPARIN SODIUM INJ 40 MG/0.4 ML DISP.SYRIN SUBCUT SCH (09:22)
[2016-12-22] MEDS: SERTRALINE HCL 50 MG TABLET PO SCH (09:23)
[2016-12-22] MEDS: NORMAL SALINE 10 ML SDV (SCHEDULED) IV SCH ×2 (09:23→21:55)
[2016-12-22] MEDS: AMLODIPINE BESYLATE 10 MG TABLET PO SCH (09:23)
[2016-12-22] MEDS: FAMOTIDINE INJ/PF 20 MG/2 ML SDV IV SCH (09:23)
[2016-12-22] MEDS: DIAZEPAM 5 MG TABLET PO SCH ×3 (09:23→21:53)
[2016-12-22] MEDS: METOPROLOL TARTRATE 50 MG TABLET PO SCH ×2 (09:23→21:53)
[2016-12-22] MEDS: MAGNESIUM SULFATE/D5W 1 GM/100 ML RTUPB IV SCH ×2 (09:23→11:16)
[2016-12-22] MEDS ORDERED: DIAZEPAM 5 MG TABLET PO SCH (10:00)
[2016-12-22] MEDS ORDERED: THIAMINE HCL 100 MG TABLET PO ONE (11:00)
[2016-12-22] MEDS: FAMOTIDINE 20 MG TABLET PO SCH ×2 (11:14→21:53)
[2016-12-22] MEDS: MAGNESIUM OXIDE 400 MG TABLET PO SCH ×2 (11:16→16:21)
[2016-12-22] MEDS: LANSOPRAZOLE 15 MG TAB.RAP.DR PO SCH (16:21)
[2016-12-23] MEDS: LANSOPRAZOLE 15 MG TAB.RAP.DR PO SCH (05:25)
[2016-12-23] MEDS: DIAZEPAM 5 MG TABLET PO SCH (05:25)
[2016-12-23] MEDS: MAGNESIUM OXIDE 400 MG TABLET PO SCH ×2 (07:48→12:19)
[2016-12-23] MEDS: ENOXAPARIN SODIUM INJ 40 MG/0.4 ML DISP.SYRIN SUBCUT SCH (09:38)
[2016-12-23] MEDS: SERTRALINE HCL 50 MG TABLET PO SCH (09:39)
[2016-12-23] MEDS: METOPROLOL TARTRATE 50 MG TABLET PO SCH (09:39)
[2016-12-23] MEDS: FAMOTIDINE 20 MG TABLET PO SCH (09:40)
[2016-12-23] MEDS: AMLODIPINE BESYLATE 10 MG TABLET PO SCH (09:40)
[2016-12-23] MEDS: NORMAL SALINE 10 ML SDV (SCHEDULED) IV SCH (09:41)
[2016-12-23 09:50] LABS: ANION GAP 14 (5-19); BLOOD UREA NITROGEN 18 mg/dL (7-20); CALCIUM 9.1 mg/dL (8.4-10.2); CARBON DIOXIDE 19 mmol/L (22-30); CHLORIDE 108 mmol/L (98-107); CREATININE RESULT 0.89 mg/dL (0.52-1.25); GLUCOSE 74 mg/dL (75-110); MAGNESIUM 1.9 mg/dL (1.6-2.3); POTASSIUM 4.1 mmol/L (3.6-5.0); SODIUM 140.9 mmol/L (137-145)
[2016-12-23] MEDS ORDERED: THIAMINE HCL 100 MG TABLET PO SCH (10:00)
[2016-12-23] MEDS ORDERED: FOLIC ACID 1 MG TABLET PO SCH (10:00)
--- NOTE | 2016-12-23 14:10 | RADIOLOGY REPORT (SQ) ---
EXAM DESCRIPTION: CT ABD/PELVIS WITH IV ONLY COMPLETED DATE/TIME: 12/23/2016 1:01 pm REASON FOR STUDY: renal mass COMPARISON: 07/25/2016 TECHNIQUE: CT scan of the abdomen and pelvis performed using helical scanning technique with dynamic intravenous contrast injection. No oral contrast. Images reviewed with lung, soft tissue, and bone windows. Reconstructed coronal and sagittal MPR images reviewed. Delayed images for evaluation of the urinary system also acquired. All images stored on PACS. All CT scanners at this facility use dose modulation, iterative reconstruction, and/or weight based d osing when appropriate to reduce radiation dose to as low as reasonably achievable (ALARA). [facility]: Dose Right [facility]: CareDose [facility]: Dose Right [facility]: Teradose 4D [facility]: [employer] CONTRAST TYPE AND DOSE: contrast/concentration: Isovue 370.00 mg/ml; Total Contrast Delivered: 78.0 ml; Total Saline Delivered: 67.0 ml RENAL FUNCTION: Creatinine 0.89 RADIATION DOSE: Up-to-date CT equipment and radiation dose reduction techniques were employed. CTDIv ol: 4.2 - 4.8 mGy. DLP: 463 mGy-cm.. LIMITATIONS: None. FINDINGS: LOWER CHEST: The previously described postsurgical changes related to a gastric pull-throu gh procedure ventral to the heart appears stable. The previously described fluid filled structure in the posterior mediastinum with associated surgical clips or calcifications is also again identified and appears stable. The posterior mediastinal fluid filled structure communicates with a 2nd cystic area just superior to the pancreas which appears stable. LIVER: Normal size. No masses. No dilated ducts. SPLEEN: Normal size. No focal lesions. PANCREAS: No masses. No significant calcifications. No adjacent inflammation or peripancreatic fluid collections. Pancreatic duct not dilated. GALLBLADDER: No identified stones by CT criteria. No inflammatory changes to suggest cholecystitis. ADRENAL GLANDS: No significant masses or asymmetry. RIGHT KIDNEY AND URETER: The previously described solid renal mass in the midportion of the right kid lakeisha is again identified and appears essentially unchanged. The mass measures 2.3 x 2.0 cm on the cur rent study. Again the appearance is suspicious for a primary renal neoplasm. No significant calcifi cations. No hydronephrosis or hydroureter. LEFT KIDNEY AND URETER: No solid masses. No significant calcifications. No hydronephrosis or hydr oureter. AORTA AND VESSELS: No aneurysm. No dissection. There is mild ectasia of the abdominal aorta and binta c vessels with vascular calcifications. Renal arteries, SMA, celiac without stenosis. RETROPERITONEUM: No retroperitoneal adenopathy, hemorrhage or masses. BOWEL AND PERITONEAL CAVITY: No masses or inflammatory changes. No free fluid or peritoneal masses. APPENDIX: Not identified PELVIS: No mass. No free fluid. Normal bladder. ABDOMINAL WALL: No masses. No hernias. BONES: No significant or acute findings. OTHER: No other significant finding. IMPRESSION: No significant interval changes compared to the previous study. The previously describe d solid renal mass in the midportion of the right kidney appears essentially unchanged. Again the ap pearance is suspicious for a primary renal neoplasm. The previously described postsurgical changes r elated to a partial esophagectomy appears stable. The previously described fluid collection in the p osterior mediastinum appears stable. Other findings as noted above TECHNICAL DOCUMENTATION: JOB ID: [id number] Quality ID # [id number]: Final reports with documentation of one or more dose reduction techniques (e.g., Au tomated exposure control, adjustment of the mA and/or kV according to patient size, use of iterative reconstruction technique) 2010 [employer]- All Rights Reserved
[2016-12-23 15:02] VITALS: BP 145/90
--- NOTE | 2016-12-23 16:52 | PDOC PROGRESS REPORT ---
Subjective Progress Note for:: 12/22/16 Subjective:: This is a note for 12/22/2016 prior note was deleted in error. Patient had no new complaints today. Patient denies chest pain, shortness of breath, abdominal pain, nausea, vomiting, fevers, chills, diarrhea, constipation , headache, new onset weakness. Physical Exam Vital Signs: Temp Pulse Resp BP Pulse Ox 97.7 F 64 18 145/90 H 100 12/23/16 15:00 12/23/16 15:00 12/23/16 15:00 12/23/16 15:00 12/23/16 15:00 Intake & Output 12/22/16 12/23/16 12/24/16 06:59 06:59 06:59 Intake Total 3509 1137 Output Total 750 525 Balance 2759 612 Weight 73.8 kg 71.9 kg Exam: GENERAL: No acute distress HEENT: Conjunctiva clear, nonicteric, moist mucous membranes, no JVD, midline trachea RESPIRATORY: Clear to auscultation bilaterally, no wheezes, no rhonchi CARDIAC: Regular rate and rhythm, no murmurs/gallops/rubs ABDOMEN: Soft, nondistended, nontender, positive bowel sounds, no rebound, no guarding EXTREMETIES: No edema, cyanosis, clubbing NEUROLOGIC: Alert, oriented to person/place/time, CN's grossly intact, no focal deficits SKIN: No rash, wounds PSYCH: Normal mood, normal affect Results Laboratory Results: 12/22/16 04:30 12/23/16 08:52 12/23/16 08:52 Sodium 140.9 Potassium 4.1 Chloride 108 H Carbon Dioxide 19 L Anion Gap 14 BUN 18 Creatinine 0.89 Est GFR ( Amer) > 60 Est GFR (Non-Af Amer) > 60 Glucose 74 L Calcium 9.1 Magnesium 1.9 Impressions: Head CT 12/20/16 00:00 IMPRESSION: Study degraded by motion artifact. No acute intracranial hemorrhage or acute territorial infarct. Cerebral involutional changes. Chest X-Ray 12/20/16 20:44 IMPRESSION: No pneumothorax post central line placement. Line is appropriate. Abdomen/Pelvis CT 12/23/16 00:00 IMPRESSION: No significant interval changes compared to the previous study. The previously described solid renal mass in the midportion of the right kidney appears essentially unchanged. Again the appearance is suspicious for a primary renal neoplasm. The previously described postsurgical changes related to a partial esophagectomy appears stable. The previously described fluid collection in the posterior mediastinum appears stable. Other findings as noted above Assessment & Plan - Diagnosis (1) Acute pancreatitis Qualifiers: Pancreatitis type: alcohol induced Acute pancreatitis complication: unspecified Qualified Code(s): K85.20 - Alcohol induced acute pancreatitis without necrosis or infection Is this a current diagnosis for this admission?: YesPlan: Patient appears to be tolerating oral. Will advance diet as tolerated. Patient reports prior partial distal esophagectomy. Will advance to a soft diet. Patient denies ongoing pain. Place patient on PPI. (2) Chronic alcoholism Plan: Patient on oral thiamine and folic acid. Transition patient to Valium 5 mg p.o. TID. Likely be tapered off tomorrow. (3) Hypercalcemia Is this a current diagnosis for this admission?: YesPlan: Reports that he was taking an excessive amount of Tums prior to admission. Intact PTH is appropriately low and serum protein electrophoresis is normal. Calcium currently normal. (4) Hypertension Qualifiers: Hypertension type: essential hypertension Qualified Code(s): I10 - Essential (primary) hypertension Is this a current diagnosis for this admission?: YesPlan: Controlled on Generic Name Dose Route Start Last Admin Trade Name Freq PRN Reason Stop Dose Admin Metoprolol Tartrate 50 mg 12/17/16 22:00 12/22/16 09:23 Lopressor 50 Mg Tablet PO 01/16/17 21:59 50 mg Q12 DARÍO Amlodipine Besylate 10 mg 12/21/16 10:00 12/22/16 09:23 Norvasc 10 Mg Tablet PO 01/20/17 09:59 10 mg DAILY [facility] (5) Hypomagnesemia Is this a current diagnosis for this admission?: YesPlan: Replete and recheck. Place on Mag-Ox 400mg po tid (6) Tobacco dependency Is this a current diagnosis for this admission?: Yes (7) Alcohol withdrawal Qualifiers: Complication of substance-induced condition: with delirium Qualified Code(s): F10.231 - Alcohol dependence with withdrawal delirium Is this a current diagnosis for this admission?: Yes (8) Gastroesophageal reflux disease Qualifiers: Esophagitis presence: esophagitis presence not specified Qualified Code(s): K21.9 - Gastro-esophageal reflux disease without esophagitis (9) Abnormal CT scan, kidney Is this a current diagnosis for this admission?: YesPlan: We will repeat patient's CT of the abdomen in light of prior renal mass and his inability to follow-up. (10) Acute hypokalemia Is this a current diagnosis for this admission?: YesPlan: replete and recheck - Time Time Spent with patient: 25-34 minutes Medications reviewed and adjusted accordingly: Yes Anticipated discharge: Home Within: within 24 hours
--- NOTE | 2016-12-23 16:59 | PDOC DISCHARGE SUMMARY ---
General - Admit/Disc Date/PCP Admission Date/Primary Care Provider: 12/17/16 11:45 NALLELY GARRETT PA-C Discharge Date: 12/23/16 - Discharge Diagnosis (1) Acute pancreatitis Is this a current diagnosis for this admission?: Yes (3) Hypercalcemia Is this a current diagnosis for this admission?: Yes (4) Hypertension Is this a current diagnosis for this admission?: Yes (5) Hypomagnesemia Is this a current diagnosis for this admission?: Yes (6) Tobacco dependency Is this a current diagnosis for this admission?: Yes (7) Alcohol withdrawal Is this a current diagnosis for this admission?: Yes (9) Abnormal CT scan, kidney Is this a current diagnosis for this admission?: Yes (10) Acute hypokalemia Is this a current diagnosis for this admission?: Yes - Additional Information Resuscitation Status: Full Code Discharge Diet: Regular Discharge Activity: Activity As Tolerated Home Medications: Metoprolol Tartrate [Lopressor 50 mg Tablet] 50 mg PO Q12 12/17/16 Sertraline HCl [Zoloft] 200 mg PO DAILY 12/17/16 Amlodipine Besylate [Norvasc 10 mg Tablet] 10 mg PO DAILY #30 tablet 12/23/16 Dexlansoprazole [Dexilant 30 mg Capsule] 30 mg PO QAM #30 cap. 12/23/16 Magnesium Oxide [Mag-Ox 400 mg Tablet] 400 mg PO MEALS #30 tablet 12/23/16 Thiamine HCl [Thiamine 100 mg Tablet] 100 mg PO DAILY #90 tablet 12/23/16 History of Present Illness History of Present Illness: HALLE ROSARIO is a 56 year old male coming in for evaluation of possible alcohol withdrawals. Patient has a history of alcoholism with pancreatitis associated with his alcoholism. Patient denies any nausea vomiting fevers or chills denies any abdominal pain. Patient states last time he drank was "last night". Patient states drinks heavily throughout the day. Endorses a history of withdrawals denies history of delusions or seizure disorder due to his withdrawal. Upon my evaluation patient is slightly tremulous. Hospital Course Hospital Course: Was found on laboratory study to have mild pancreatitis. Patient was placed n.p.o. and given pain management as well as IV fluids. Patient was noted to have a significantly elevated calcium at 18.3. [place] to be secondary to self- medicating with Tums. Patient reported that he took the entire bottle. Patient was given IV hydration improvement of his calcium to 9.1. Serum protein electrophoresis was negative and intact PTH was appropriately suppressed. Patient was given Ativan for withdrawal as well as scheduled Valium. This was tapered off and patient tolerated this without return of his symptomatology. Patient was transitioned to first clear liquids and regular diet without worsening of his symptoms. He did note some mild diarrhea. Upon review of patient's prior admission and July, patient was noted to have an abnormal CAT scan no mass of 2.3 x 2 cm with concern for malignancy. Repeat CT was performed on 12/23/2016 which revealed a similar finding. Patient was referred to Dr. Duenas as an outpatient and has been encouraged to follow-up for concern for malignancy. Patient was doing well and evaluated by physical therapy. 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 Home health physical therapy was set up for this patient. Patient was discharged in stable condition today. Physical Exam Vital Signs: Temp Pulse Resp BP Pulse Ox 97.7 F 64 18 145/90 H 100 12/23/16 15:00 12/23/16 15:00 12/23/16 15:00 12/23/16 15:00 12/23/16 15:00 Intake & Output 12/22/16 12/23/16 12/24/16 06:59 06:59 06:59 Intake Total 3509 1137 Output Total 750 525 Balance 2759 612 Weight 73.8 kg 71.9 kg Exam: GENERAL: No acute distress HEENT: Conjunctiva clear, nonicteric, moist mucous membranes, no JVD, midline trachea RESPIRATORY: Clear to auscultation bilaterally, no wheezes, no rhonchi CARDIAC: Regular rate and rhythm, no murmurs/gallops/rubs ABDOMEN: Soft, nondistended, nontender, positive bowel sounds, no rebound, no guarding EXTREMETIES: No edema, cyanosis, clubbing NEUROLOGIC: Alert, oriented to person/place/time, CN's grossly intact, no focal deficits SKIN: No rash, wounds PSYCH: Normal mood, normal affect Results Laboratory Results: 12/22/16 04:30 12/23/16 08:52 12/23/16 08:52 Sodium 140.9 Potassium 4.1 Chloride 108 H Carbon Dioxide 19 L Anion Gap 14 BUN 18 Creatinine 0.89 Est GFR ( Amer) > 60 Est GFR (Non-Af Amer) > 60 Glucose 74 L Calcium 9.1 Magnesium 1.9 Impressions: Head CT 12/20/16 00:00 IMPRESSION: Study degraded by motion artifact. No acute intracranial hemorrhage or acute territorial infarct. Cerebral involutional changes. Chest X-Ray 12/20/16 20:44 IMPRESSION: No pneumothorax post central line placement. Line is appropriate. Abdomen/Pelvis CT 12/23/16 00:00 IMPRESSION: No significant interval changes compared to the previous study. The previously described solid renal mass in the midportion of the right kidney appears essentially unchanged. Again the appearance is suspicious for a primary renal neoplasm. The previously described postsurgical changes related to a partial esophagectomy appears stable. The previously described fluid collection in the posterior mediastinum appears stable. Other findings as noted above Qualifiers [place] BEING DISCHARGED WITH ANY OF THE FOLLOWING DIAGNOSIS?: No Plan Time Spent: Less than 30 Minutes
== END 2016-12-23 16:00 | disposition home health service (06) | DRG 896 ==
LOC: ER 06:23 → UNDOADMIN 09:44 → EH 09:44 → 3W 11:32 → EH 11:45
PROVIDERS: ADMIT Internal Medicine; ATTEND Internal Medicine
PROC: 02HV33Z Insertion of Infusion Device into Superior Vena Cava, Percutaneous Approach (ICD-10-PCS; principal; 2016-12-20)
DX: F10.231 Alcohol dependence with withdrawal delirium (principal); K85.20 Alcohol induced acute pancreatitis without necrosis or infection; T47.1X1A Poisoning by other antacids and anti-gastric-secretion drugs, accidental (unintentional), initial encounter; E83.52 Hypercalcemia; E87.6 Hypokalemia; E83.42 Hypomagnesemia; I10 Essential (primary) hypertension; K21.9 Gastro-esophageal reflux disease without esophagitis; F32.9 Major depressive disorder, single episode, unspecified; F17.210 Nicotine dependence, cigarettes, uncomplicated; F14.90 Cocaine use, unspecified, uncomplicated; F12.90 Cannabis use, unspecified, uncomplicated; F16.90 Hallucinogen use, unspecified, uncomplicated; Y90.0 Blood alcohol level of less than 20 mg/100 ml; Y92.009 Unspecified place in unspecified non-institutional (private) residence as the place of occurrence of the external cause
CPT/HCPCS: 36415; 70450; 71010; 74177; 80048; 80053; 80307; 81001; 82550; 82803; 82962; 83690; 83735; 83970; 84165; 84484; 85025; 93005; 93010; 96361; 96365; 96368; 99285; C1751; G8978-GP; G8979-GP; J0696; J1650; J2060; J3411; J3475; J3480; J3490; J7030; S0028